=== PATIENT | female | born 1990 | race Caucasian/White ===

== ENCOUNTER 2020-01-22 11:10 | Emergency (ER) | payer MEDICAID, SELFPAY ==
[2020-01-22 11:11] VITALS: BP 131/89; PULSE 101; RESP 17; TEMP 36.4; O2SAT 100; BMI 21.6
--- NOTE | 2020-01-22 11:49 | ED.VIS.LOWEX ---
History of Present Illness Chief Complaint: Bite Narrative: . Patient states that around 2 days ago she fell in the [place], today she was showering and noted that she had a tick on her right shoulder with some slightly surrounding redness. She denies costal to general symptoms such as fever. She does state that it was engorged. She did attempt to remove it, but was unable to remove it completely. Patient denies any histories of allergies. She denies any underlying medical history. Review of systems otherwise negative. Past Medical History - Allergies and Home Meds Allergies/Adverse Reactions: Allergies Sulfa (Sulfonamide Antibiotics) Allergy (Verified 01/22/20 11:11) Swelling Primary Care Physician: Mirna Beckham MD [Primary Care Provider] - Prior records reviewed: Yes Past Medical History: None Lives: With Family Smoking Status: Current every day smoker Drugs: None Review of Systems All systems negative except as indicated General: Denies: Chills, Fever, Sweats Eyes: Denies: Visual changes - bilaterally, Diplopia ENT: Denies: Rhinorrhea, Sore throat Cardiovascular: Denies: Chest pain, Palpitations Respiratory: Denies: Dyspnea, Cough, Dyspnea on exertion Gastrointestinal: Denies: Abdominal pain, Nausea, Vomiting, Diarrhea, Melena, Hematochezia Genitourinary: Denies: Dysuria, Hematuria, Frequency Musculoskeletal: Denies: Back pain, Extremity Pain Skin: Reports: Rash Neurological: Denies: Headache, Weakness, Numbness Physical Exam Vital Signs/Narrative: Vital Signs Temp Pulse Resp BP Pulse Ox 01/22/20 11:11 97.5 F L 101 H 17 131/89 H 100 Inital Vital Signs reviewed: Yes General: Well nourished, Well developed Head: Normocephalic, Atraumatic ENT: No Trauma, Moist Mucous Membranes Neck: Nontender, Full ROM Cardiovascular: Regular rate, Regular rhythm, No murmurs Respiratory: No distress, CTA bilaterally, Chest nontender Skin: - - Examination of the patient's right anterior shoulder shows an implanted tick with some surrounding erythema, no obvious target lesion. Neurological: Alert, Oriented x3, Cranial nerves II-XII grossly intact, Normal Strength, Normal Sensation Diagnostic/Tx/Re-eval - Medical Decision Making Patient presented secondary to a tick bite. Tick was removed as noted in the procedure note. Patient be placed on doxycycline secondary to the surrounding rash. Procedures Procedure(s): Removal of tick in the patient's skin was performed. Area was cleansed with alcohol. Forceps were utilized, and the tick was removed except for a very punctate mouthparts that remained. Patient tolerated this well. ED Disposition - Plan for ED Patient: Disposition: Home or Assisted Living Diagnosis: Tick bite Instructions: ED Bite Tick Abx Tx Prescriptions: Fluconazole [Diflucan] 150 mg PO DAILY #1 tab Prescription Printed Doxycycline 100 mg PO BID #20 capsule Referrals: Mirna Beckham MD [Primary Care Provider] -
[2020-01-22 12:13] VITALS: BP 120/78; PULSE 103; RESP 15; O2SAT 99
== END 2020-01-22 12:14 | disposition home or self-care (01) ==
PROVIDERS: Emergency Provider Emergency Medicine
DX: S40.261A Insect bite (nonvenomous) of right shoulder, initial encounter (principal); W57.XXXA Bitten or stung by nonvenomous insect and other nonvenomous arthropods, initial encounter; Y93.9 Activity, unspecified; Y92.828 Other wilderness area as the place of occurrence of the external cause; Y99.9 Unspecified external cause status; F17.200 Nicotine dependence, unspecified, uncomplicated
CPT/HCPCS: 99282

== ENCOUNTER 2020-06-29 14:50 | Emergency (ER) | payer MEDICAID, SELFPAY ==
[2020-06-29 14:51] VITALS: BP 115/64; PULSE 81; RESP 16; TEMP 36.4; O2SAT 99; BMI 23.6
--- NOTE | 2020-06-29 15:15 | ED.DCSUM_ITS ---
History of Present Illness Chief Complaint: Cough Informant: Patient Onset: Days Context: Gradual Onset Current Severity: Mild Maximum Severity: Moderate Narrative: Patient presents secondary to dry cough and congestion. Patient is currently 21 weeks . She states she woke up 2 or 3 days ago with head congestion and some drainage from her left eye. She has had a dry cough. No fever or chills. She states she initially thought this is all secondary to allergies but has noted that the mucus that she is blowing from her nose has become thicker and more discolored. She denies any known Covid exposure. - Past Medical History (1) ADHD Status: Chronic Past Medical History - Allergies and Home Meds Allergies/Adverse Reactions: Allergies Sulfa (Sulfonamide Antibiotics) Allergy (Verified 06/29/20 14:51) Swelling Primary Care Physician: Care Physician,No Primary [Primary Care Provider] - Prior records reviewed: Yes Lives: With Family Smoking Status: Current some day smoker Review of Systems General: Denies: Chills, Fever Eyes: Reports: - - Left eye drainage. Denies: Visual changes - bilaterally ENT: Reports: Bilateral ear pain, Rhinorrhea, Sore throat Cardiovascular: Denies: Chest pain Respiratory: Reports: Cough. Denies: Dyspnea, Sputum Gastrointestinal: Denies: Abdominal pain, Nausea, Vomiting, Diarrhea Musculoskeletal: Denies: Swelling, Extremity Pain Neurological: Denies: Headache Hematologic: Denies: Easy bruising, Easy bleeding Allergy: Denies: Uticaria Physical Exam Vital Signs/Narrative: Vital Signs Temp Pulse Resp BP Pulse Ox 06/29/20 14:51 97.6 F L 81 16 115/64 99 Inital Vital Signs reviewed: Yes General: Well nourished, Well developed Head: Normocephalic Eyes: Perrl, EOMI, - - No conjunctival injection or drainage at this time ENT: Moist mucous membranes, TM's clear, - - Posterior pharynx examination unremarkable Cardiovascular: Regular rate, Regular rhythm Respiratory: No distress, CTA bilaterally Abdomen: Soft, Nontender, - - Gravid Extremities: Nontender Skin: Normal color Neurological: Alert, Oriented x3 Psychological: Normal affect Diagnostic/Tx/Re-eval - Medical Decision Making Patient will have a Covid test obtained. Test results will be texted to her. Patient be treated with a course of Zithromax, first dose given here. ED Disposition - Plan for ED Patient: Disposition: Home or Assisted Living Diagnosis: Sinusitis Instructions: ED Sinusitis (Antibiotic Treatment) Prescriptions: Azithromycin [Zithromax] 250 mg PO DAILY #4 tab Transmission Status: Pending to [facility] Referrals: Brie Richmond CNM [Certified Nurse Measuring Machine Tender] - 1-2 Weeks
[2020-06-29] MEDS: Azithromycin 250 MG Tablet 500 MG PO (15:31)
[2020-06-29 15:37] VITALS: BP 122/73; PULSE 79; RESP 16; O2SAT 99
== END 2020-06-29 15:38 | disposition home or self-care (01) ==
LOC: ED 15:27
PROVIDERS: Emergency Provider Emergency Medicine
DX: O99.512 Diseases of the respiratory system complicating pregnancy, second trimester (principal); J32.9 Chronic sinusitis, unspecified; O99.332 Smoking (tobacco) complicating pregnancy, second trimester; F17.200 Nicotine dependence, unspecified, uncomplicated; Z3A.21 21 weeks gestation of pregnancy
CPT/HCPCS: 87426; 99282

== ENCOUNTER 2020-09-17 11:58 | Emergency (ER) | payer MEDICAID, SELFPAY ==
[2020-09-17 11:59] VITALS: BP 112/70; PULSE 85; RESP 16; TEMP 36.6; O2SAT 97; BMI 26.6
--- NOTE | 2020-09-17 12:45 | RAD_ITS ---
STUDY: X-RAY CHEST REASON FOR EXAM: Female, 30 years old. Cough -- Shield abdomen TECHNIQUE: Single AP portable view of the chest. COMPARISON: None. FINDINGS: The lungs are clear and expanded. There is no demonstrated pleural abnormality. Normal size heart. Normal mediastinum and maria m. Normal visualized pulmonary arteries. Normal visualized aortic arch and descending thoracic aorta. Normal visualized thoracic spine. Normal visualized ribs, clavicles, and shoulders. There is no demonstrated abnormality of the visualized soft tissue structures of the upper abdomen. RAD/Chest 1 View (Portable) IMPRESSION: Normal x-ray examination of the chest. Electronically Signed: Patrice Velásquez MD at 12:55 EDT , Service support ,
--- NOTE | 2020-09-17 14:00 | EX.ED.VIS.UR ---
HPI HPI - URI History of Present Illness Chief Complaint: Cough Informant: patient Onset/Context/Timing Onset: Yesterday Context: Gradual Onset Timing: Continuous Quality: Aching Location: Throat Worsened by: Swallowing Associated Symptoms Associated Symptoms: Positive for Nasal Congestion, Headache, Sinus Pressure, Nausea, Diarrhea, Shortness of Breath and Productive Cough; Negative for Myalgias, Vomiting, Chest Pain, Nonproductive cough and Hemoptysis Narrative Narrative: Patient presents with cough and congestion that has been getting worse since yesterday. Patient states that she is coughing up some thick yellow and brown sputum. Patient admits to some nasal congestion, headache, sinus pressure, and nausea. Patient also admits to some diarrhea. Patient states her pain is worse with talking. Patient admits to some mild shortness of breath but denies any chest pain. ROS ROS ED Constitutional Constitutional ED: Reports chills and subjective; Denies fever(s) Eyes Eyes: Denies blurry vision or change in vision ENT ENT ED: Reports rhinorrhea and sore throat Cardiovascular Cardiovascular: Denies chest pain or palpitations Respiratory/Chest Respiratory/Chest: Reports cough and dyspnea Gastrointestinal Gastrointestinal: Reports diarrhea and nausea; Denies vomiting Genitourinary Genitourinary ED: Denies dysuria or hematuria Musculoskeletal Musculoskeletal: Denies back pain or neck pain Integumentary Denies abscess or rash Neurologic Neurologic: Reports headache(s); Denies weakness Allergic/Immunologic Allergic/Immunologic ED: Denies mouth swelling or urticaria PFSH PFSH Home Medications azithromycin 250 mg PO DAILY #4 tab 06/29/20 [Rx Last Taken Unknown] [id number] acid 1 each PO DAILY 06/29/20 [History Last Taken Unknown] Allergy/AdvReac Type Severity Reaction Status Date / Time Sulfa (Sulfonamide Allergy Swelling Verified 06/29/20 14:51 Antibiotics) Social History Smoking Status: Former smoker EXAM Physical Exam Const Vital Signs: 09/17/20 11:59 09/17/20 12:34 Temperature 97.9 F Temperature Source Oral Pulse Rate 85 Respiratory Rate 16 Respiratory Effort Normal Blood Pressure 112/70 Blood Pressure Mean 84 Pulse Ox 97 Oxygen Delivery Method Room Air Positive well nourished and well developed General Appearance ED: well developed HEENT Reports moist mucous membranes Throat: posterior oropharynx abnormal Positive for erythema; Negative for exudates Eyes PERRL and EOMs intact bilaterally Neck supple and no JVD Resp normal respiratory effort and clear to auscultation bilaterally Cardio regular rate, regular rhythm and no murmurs Rate: regular rate Rhythm: regular rhythm GI normal to inspection, nondistended, normoactive bowel sounds and non-tender Palpation: soft and mass Percussion: other Other Details: There is a gravid uterus Extremity normal to inspection General Extremety ED: Negative for edema or tenderness General Extremity: Negative for edema Neuro oriented x3, CN's II-XII intact bilaterally and no sensory deficits noted Sensorium / Orientation: alert Motor Exam: strength 5/5 throughout Psych mental status grossly normal Skin no rashes or lesions noted MDM MDM MDM Narrative Medical decision making narrative: Portable 1 view chest x-ray was obtained. On my interpretation, lung camacho are clear. There is normal cardiac silhouette. Bony thorax is normal. There is no acute process noted. Radiologist also interpreted the x-ray and agrees. Rapid strep was obtained and was negative. Rapid COVID-19 antigen was obtained and was negative. Patient was advised of her findings. Patient was instructed to drink plenty of fluids. Patient was instructed to follow-up with her primary care physician in 5 to 7 days. Patient understood and was agreeable with the plan. All questions were answered. Radiography Diagnostic Testing: Radiology Impression Chest X-Ray 09/17/20 12:45 IMPRESSION: Normal x-ray examination of the chest. Electronically Signed: Patrice Velásquez MD at 12:55 EDT , Service support , Discharge Plan Triage Chief Complaint: Cough ED Provider: Derick Rudolph Dx/Rx/DC Orders Clinical Impression: Viral upper respiratory infection Instructions: ED URI, Viral, No Abx (Adult) Prescriptions: No Action [id number] acid 1 EACH tablet 1 each PO DAILY RF: 0 azithromycin 250 MG tablet 250 mg PO DAILY Qty: 4 RF: 0 Primary Care Provider: Care Physician,No Primary Referrals: Care Physician,No Primary [Primary Care Provider] - 3-5 Days Disposition Disposition: Home, self care
== END 2020-09-17 14:27 | disposition home or self-care (01) ==
PROVIDERS: Emergency Provider Emergency Medicine
DX: J06.9 Acute upper respiratory infection, unspecified (principal); Z87.891 Personal history of nicotine dependence
CPT/HCPCS: 71045; 87426; 87880; 99282

== ENCOUNTER 2020-11-14 01:20 | Inpatient (IN) | payer MEDICAID, SELFPAY ==
[2020-11-14] VITALS (42 sets, daily range): BP systolic 78–141; BP diastolic 45–78; PULSE 71–200; RESP 16; TEMP 36.5–37.1; O2SAT 94–100; BMI 26.5
[2020-11-14] MEDS: Lactated Ringers 500 ML 999 ML IV ×2 (02:00→05:52)
[2020-11-14] MEDS: Lactated Ringers 1,000 ML 50 ML IV (02:00)
[2020-11-14 02:29] LABS: Absolute Lymphocyte Count 1.33 X10^3/uL (0.83-4.51); Absolute Neutrophil Count 7.4 X10^3/uL (2.0-7.7); Basophil# 0.05 X10^3/uL; Basophil% 0.5 % (0-1); Eosinophil# 0.08 X10^3/uL; Eosinophils% 0.8 % (0-5); Hemoglobin 11.5 g/dL (12.0-15.0); Lymphocyte # 1.33 X10^3/ul (0.83-4.51); Lymphocyte % 13.9 % (19-41); Mean Corp Hgb Conc 32.9 g/dL (32-36); Mean Corpuscular Hgb 30.9 pg (27.0-32.0); Mean Corpuscular Volume 94.1 fL (81-99); Mean Platelet Vol. 12.2 fl (6.2-12.0); Monocyte# 0.59 X10^3/uL; Monocyte% 6.2 % (0-10); NRBC Flagged by Analyzer 0 % (0-5); Neutrophil # 7.36 X10^3/uL (2.7-7.7); Neutrophil % 77.1 % (47-70); Platelet Count 237 K/mm3 (150-450); RBC Distribution Width CV 12.6 % (11.6-14.6); RBC Distribution Width SD 43.6 fl (35.1-43.9); Red Blood Count 3.72 M/mm3 (4.2-5.4); White Blood Count 9.6 K/mm3 (4.4-11.0)
[2020-11-14] MEDS: fentaNYL-bupivacaine (epidural) 100 ML BAG EPIDURAL ×2 (06:21→11:43)
[2020-11-14] MEDS: Oxytocin 30 units/NS 500 ml 30 UNITS/500 ML IV.SOLN IV (07:42)
--- NOTE | 2020-11-14 08:15 | HP.PCM.OB_ITS ---
HPI - General General Date of Admission: 11/14/20 HPI Narrative JONATHAN MURILLO, is a 30 F at 41.2 weeks gestation who presents with spontaneous rupture of membranes at 0020. Positive movement and feeling contractions every couple of minutes. Desires epidural anesthesia. Maternal Data Information ALEXA Calculator Estimated Delivery Date Method Current WG Current Estimate 11/05/20 Manual 41w 2d PFSH PFSH Medical History Elective Trauma Home Medications [id number] acid 1 each PO DAILY 06/29/20 [History Last Taken Unknown] Allergy/AdvReac Type Severity Reaction Status Date / Time Sulfa (Sulfonamide Allergy Swelling Verified 11/14/20 01:59 Antibiotics) Surgical History [place] teeth extracted Social History Smoking Status: Former smoker History Elective abortions Hx Para 1 Spontaneous abortions Hx # Term Pregnancies Ectopic pregnancies Hx # Pregnancies Multiple births # of living children NST FHR Rate Baby A Baseline: 150 Variability:: Moderate Accelerations:: 15 x 15 Decelerations:: None NST Reactive:: Yes FHR Category:: Category I Uterine Activity:: irregular ROS Eyes Eyes: Denies blurry vision, change in vision or spots in vision ENT HEENT: Denies dizziness or headache(s) Cardiovascular Cardiovascular: Denies abdominal pain, chest pain or dyspnea Respiratory/Chest Respiratory/Chest: Denies cough, dyspnea, shortness of breath at rest or shortness of breath with exertion Gastrointestinal Gastrointestinal: Denies abdominal pain, diarrhea or vomiting Genitourinary Genitourinary: Denies change in urinary stream, difficulty urinating or dysuria Musculoskeletal Musculoskeletal: Reports none Integumentary Integumentary: Denies rash Neurologic Neurologic: Denies dizziness, headache(s), memory loss or weakness Psychiatric Psychiatric: Reports none Vital Signs Vital Signs Vital Signs: 11/14/20 01:43 11/14/20 01:44 11/14/20 03:27 Temperature 98.8 F 97.7 F L Temperature Source Temporal Pulse Rate 100 103 H 78 Blood Pressure 114/66 132/69 H BP Systolic 114 132 BP Diastolic 66 69 Pulse Ox 98 98 11/14/20 04:37 11/14/20 04:38 11/14/20 05:48 Temperature 98.1 F Temperature Source Pulse Rate 71 85 Blood Pressure 116/68 117/70 BP Systolic 116 117 BP Diastolic 68 70 Pulse Ox 97 100 11/14/20 05:53 11/14/20 05:54 11/14/20 05:58 Temperature Temperature Source Pulse Rate 87 83 Blood Pressure 123/76 H 128/78 H BP Systolic 123 128 BP Diastolic 76 78 Pulse Ox 99 99 11/14/20 06:03 11/14/20 06:05 11/14/20 06:08 Temperature Temperature Source Pulse Rate 81 93 91 Blood Pressure 141/60 H BP Systolic 141 BP Diastolic 60 Pulse Ox 99 99 11/14/20 06:10 11/14/20 06:11 11/14/20 06:13 Temperature Temperature Source Pulse Rate 85 80 89 Blood Pressure 78/45 L 80/46 L 86/50 L BP Systolic 78 80 86 BP Diastolic 45 46 50 Pulse Ox 98 11/14/20 06:18 11/14/20 06:23 11/14/20 06:25 Temperature Temperature Source Pulse Rate 76 86 78 Blood Pressure 105/59 L 106/55 L BP Systolic 105 106 BP Diastolic 59 55 Pulse Ox 100 100 11/14/20 06:28 11/14/20 06:29 11/14/20 06:33 Temperature Temperature Source Pulse Rate 73 71 81 Blood Pressure 120/58 L BP Systolic 120 BP Diastolic 58 Pulse Ox 100 100 11/14/20 06:34 11/14/20 06:50 11/14/20 07:18 Temperature 98.1 F 98.1 F Temperature Source Pulse Rate 72 85 Blood Pressure 121/69 H 129/72 H BP Systolic 121 129 BP Diastolic 69 72 Pulse Ox 11/14/20 08:13 11/14/20 09:09 11/14/20 10:03 Temperature 97.8 F 98.1 F Temperature Source Oral Oral Pulse Rate 85 94 88 Blood Pressure 124/58 H 108/63 91/50 L BP Systolic 124 108 91 BP Diastolic 58 63 50 Pulse Ox 97 98 11/14/20 10:57 11/14/20 12:12 11/14/20 13:56 Temperature 98.0 F Temperature Source Oral Pulse Rate 87 72 116 H Blood Pressure 102/58 L 97/57 L 107/58 L BP Systolic 102 97 107 BP Diastolic 58 57 58 Pulse Ox 100 98 11/14/20 15:07 11/14/20 15:58 11/14/20 16:13 Temperature 98.2 F Temperature Source Temporal Pulse Rate 84 118 H 90 Blood Pressure 101/59 L 131/67 H 113/60 BP Systolic 101 131 113 BP Diastolic 59 67 60 Pulse Ox 94 11/14/20 16:27 11/14/20 16:42 11/14/20 16:44 Temperature 98.1 F Temperature Source Pulse Rate 85 79 Blood Pressure 115/60 112/64 BP Systolic 115 112 BP Diastolic 60 64 Pulse Ox 11/14/20 16:58 11/14/20 17:12 11/14/20 17:27 Temperature Temperature Source Pulse Rate 75 86 83 Blood Pressure 115/68 114/71 112/68 BP Systolic 115 114 112 BP Diastolic 68 71 68 Pulse Ox 11/14/20 17:42 Temperature Temperature Source Pulse Rate 79 Blood Pressure 107/68 BP Systolic 107 BP Diastolic 68 Pulse Ox Weight Weight: 154 lb 9.6 oz Body Mass Index (BMI) 26.5 Physical Exam Narrative CE- 4/70/-1 Amniotic fluid- thick meconium Const alert, oriented x3 and no apparent distress General Appearance: cooperative Orientation / Consciousness: awake Exam Limitations: no limitations HEENT normocephalic Head and Scalp: normal to inspection Eyes General Eye: normal appearance of both eyes Neck full ROM and no lymphadenopathy Lymph Lymphatic: no lymphadenopathy noted Chest inspection of chest normal Resp normal respiratory effort, normal air movement and clear to auscultation bilaterally Effort and Inspection: able to speak in complete sentences and symmetric chest movement Cardio regular rate and regular rhythm GI normal to inspection, nondistended, normoactive bowel sounds Back/Spine normal ROM Extremity full ROM and no calf tenderness Skin no rashes or lesions noted General Skin Exam: no breakdown Neuro oriented x3 and CN's II-XII intact bilaterally Psych mental status grossly normal and thought process normal Labs Labs Labs: Blood Type B NEGATIVE Antibody Screen TNP Hct 35.0 % (37-47) L Hgb 11.5 g/dL (12.0-15.0) L Rubella- immune HB - neg HC- neg RPR- NR HIV- NR GBS - negative Assessment & Plan (1) 41 weeks gestation of : (2) Spontaneous rupture of amniotic membranes: (3) Meconium in amniotic fluid: PLAN: Admit to labor and delivery Routine labs Start IV fluids and titrate per orders GBS negative SROM- thick meconium at 0020/ [employer] notified Epidural when indicated Start pitocin IV and titrate per policy Anticipate Dr. Russo notified and is collaborating physician
[2020-11-14] MEDS: Lactated Ringers 1,000 ML 200 ML IV ×2 (08:24→14:39)
--- NOTE | 2020-11-14 08:45 | PCM.PN.OB ---
Subjective Subjective Patient seen at bedside. Comfortable with epidural. Objective Data Objective Data Vital Signs: Vital Signs Temp Pulse BP Pulse Ox 98.1 F 85 124/58 H 100 11/14/20 07:18 11/14/20 08:13 11/14/20 08:13 11/14/20 06:33 Weight: 154 lb 9.6 oz Body Mass Index (BMI) 26.5 Intake & Output: Intake and Output for Last 24 Hours 11/12/20 11/13/20 11/14/20 23:59 23:59 23:59 Intake Total 1414.32 / 1414.32 Balance 1414.32 / 1414.32 Lab / Micro Data Result Diagrams: 11/14/20 02:00 Labs: Laboratory Results - last 24 hr 11/14/20 02:00: WBC 9.6, RBC 3.72 L, Hgb 11.5 L, Hct 35.0 L, MCV 94.1, MCH 30.9, MCHC 32.9, RDW Std Deviation 43.6, RDW Coeff of Shakir 12.6, Plt Count 237, MPV 12.2 H, Immature Gran % (Auto) 1.500 H, Neut % (Auto) 77.1 H, Lymph % (Auto) 13.9 L, [place] % (Auto) 6.2, Eos % (Auto) 0.8, Baso % (Auto) 0.5, Absolute Neuts (auto) 7.4, Absolute Lymphs (auto) 1.33, Nucleated RBC % 0 11/14/20 02:00: Blood Type B NEGATIVE, Antibody Screen TNP 11/14/20 02:00: Antibody Screen NEGATIVE Micro: Microbiology 11/14/20 02:00 Mucosa - Nose SARS-CoV-2 Antigen (Rapid) - Final
--- NOTE | 2020-11-14 12:20 | PCM.PN.BLA ---
Progress Note Patient seen at bedside. Feeling increased pressure with contractions. Denies any pain. Physical Exam Narrative CE- 7/80/-1 Const alert and no apparent distress General Appearance: cooperative and comfortable Exam Limitations: no limitations HEENT normocephalic Eyes General Eye: normal appearance of both eyes Neck full ROM General: normal visual inspection Chest Chest: symmetrical chest wall rise Resp normal respiratory effort and normal air movement Effort and Inspection: symmetric chest movement Auscultation: clear to auscultation bilaterally Cardio regular rate and regular rhythm GI normal to inspection, nondistended, normoactive bowel sounds Back/Spine normal ROM Extremity full ROM and no calf tenderness General Extremity: normal exam except as noted Skin no rashes or lesions noted Neuro CN's II-XII intact bilaterally Psych mental status grossly normal Assessment & Plan Assessment/Plan (1) Meconium in amniotic fluid: (2) Spontaneous rupture of amniotic membranes: (3) 41 weeks gestation of : PLAN: Continue present management
[2020-11-14] MEDS: Oxytocin 30 units/NS 500 ml 30 UNITS/500 ML IV.SOLN 334 UNITS IV (15:50)
--- NOTE | 2020-11-14 15:57 | EX.PCM.OBRPT ---
Maternal Data Information Final ALEXA: 11/05/20 Final ALEXA Source: [place] <20 weeks Gestational age: 41.2 Vaginal Delivery Maternal Presentation Maternal Presentation: Spontaneous Rupture of Membranes Type of Induction: Pitocin Operative Information Date of Procedure: 11/14/20 Pre-Operative Diagnosis: post term , SROM, labor , meconium fluid Post-Operative Diagnosis: same, live female infant Surgery / Procedure Performed: Spontaneous Vaginal Delivery Type of Anesthesia: Epidural Drain: Conner to straight drain Estimated Blood Loss: 150 Time of Delivery: 15:48 Findings Description of Procedure: I was notified that the patient was still pushing arrest of descent and suspected asynclitic head. Upon my arrival felt that the fetus was in transverse position at this time fetus was rotated to the TOI position and at this time descent occurred. With good maternal pushing efforts infant's head was delivered without complication. Tight nuchal was noted. This nuchal was clamped and cut and with good maternal pushing efforts the anterior shoulder was delivered with gentle downward traction followed by the rest the infant's body. At this time the was placed on the mother's chest and it was vigorous at time of delivery. Respiratory and peds were present for delivery due to meconium fluid. At this time then Pitocin was initiated and placenta was delivered intact spontaneously. Perineum and vagina were intact. Presentation: Vertex Amniotic Membrane Rupture Type: Spontaneous Amniotic Fluid Description: Thick meconium Placental Delivery Description: Spontaneous Placenta Disposition: [facility] Specimen(s) Removed: Placenta Cord Vessel Description: 3 Vessels Cord Entanglement: Around neck x 1, tight Nuchal Cord Compression: With compression Infant A Gender: Female (1 minute): 8 (5 minute): 9 Delayed Cord Clamping: Yes Post Vaginal Delivery Medications Given After Delivery: IV Pitocin Episiotomy Description: None Laceration: None Complication Complications: None Admit VTE Documentation VTE Present on Admission: No VTE Mechan Device Prophylaxis: None VTE Pharm Prophylaxis Ordered: No Reason Prophylaxis Not Ordered: Procedure Not Indicated
[2020-11-15 00:03] VITALS: BP 123/79; PULSE 78; RESP 16
[2020-11-15 04:44] VITALS: BP 111/67; PULSE 81; RESP 18
--- NOTE | 2020-11-15 08:22 | PCM.PN.OB ---
Subjective Subjective She is doing well this morning having some cramping. Otherwise doing well. Ambulating voiding without difficulty. Lochia normal. Desires to stay another night. Objective Data Objective Data Vital Signs: Vital Signs Temp Pulse Resp BP Pulse Ox 98.4 F 81 18 111/67 94 11/14/20 20:27 11/15/20 04:44 11/15/20 04:44 11/15/20 04:44 11/14/20 15:58 Oxygen Delivery Method Room Air Weight: 154 lb 9.6 oz Body Mass Index (BMI) 26.5 Intake & Output: Intake and Output for Last 24 Hours 11/13/20 11/14/20 11/15/20 23:59 23:59 23:59 Intake Total 3200.63 / 3200.63 Output Total 2900 / 2900 Balance 300.63 / 300.63 Lab / Micro Data Result Diagrams: 11/14/20 02:00 Labs: Laboratory Results - last 24 hr 11/14/20 18:45: Screen NEGATIVE, Baby's Blood Type O POSITIVE, Baby's BARRY NEGATIVE Micro: Microbiology 11/14/20 02:00 Mucosa - Nose SARS-CoV-2 Antigen (Rapid) - Final Physical Exam Const alert and no apparent distress General Appearance: comfortable HEENT normocephalic Resp normal respiratory effort Extremity normal to inspection Assessment & Plan (1) (spontaneous vaginal delivery): PLAN: Pt doing well. Routine care. Anticipate discharge tomorrow.
[2020-11-15 09:27] VITALS: BP 115/60; PULSE 89; RESP 16; TEMP 36.7
[2020-11-15 13:00] VITALS: BP 102/72; PULSE 68; RESP 18; TEMP 36.7
--- NOTE | 2020-11-15 14:15 | CASEMGMT ---
Social Work Consult received for history of homelessness. Upon chart reviewed noted homelessness during , noted in [facility] record in June 2020. Mother of baby with history of ADHD. Presented to MOB's room to find room darkened. MOB waved this internal communications writer in and made comment to baby every time. Father of baby laying down on couch. Educated MOB to this internal communications writer and to role. Acknowledged that MOB seems to be sleeping and asked if this was a good time to talk. MOB expressed preference for social work visit at a later time. Agreed for a social services aide to come back later. Spoke with social services aide who is working Wednesday for handoff. Plan: SW to see family on , as per the MOB's request for a later SW consult. -BRYNN Chew, INFECTIOUS DISEASE PHYSICIAN
[2020-11-15 20:55] VITALS: BP 115/73; PULSE 61; RESP 16; TEMP 36.8
--- NOTE | 2020-11-15 22:00 | NURSING ---
report received from karan GILES. this RN to assume care of pt at this time.
[2020-11-16 02:57] VITALS: BP 92/52; PULSE 57; RESP 16; TEMP 36.2
--- NOTE | 2020-11-16 08:41 | PCM.PN.OB ---
Subjective Subjective Pt doing well. No CP, SOB, leg pain. Ambulating and voiding without difficulty. Aaron reg diet. No N/V. Lochia normal. Objective Data Objective Data Vital Signs: Vital Signs Temp Pulse Resp BP Pulse Ox 97.2 F L 57 L 16 92/52 L 94 11/16/20 02:57 11/16/20 02:57 11/16/20 02:57 11/16/20 02:57 11/14/20 15:58 Oxygen Delivery Method Room Air Weight: 154 lb 9.6 oz Body Mass Index (BMI) 26.5 Intake & Output: Intake and Output for Last 24 Hours 11/14/20 11/15/20 11/16/20 23:59 23:59 23:59 Intake Total 3200.63 / 3200.63 Output Total 2900 / 2900 Balance 300.63 / 300.63 Lab / Micro Data Result Diagrams: 11/14/20 02:00 Micro: Microbiology 11/14/20 02:00 Mucosa - Nose SARS-CoV-2 Antigen (Rapid) - Final Physical Exam Const alert General Appearance: comfortable HEENT normocephalic Resp normal respiratory effort Extremity normal to inspection Assessment & Plan (1) (spontaneous vaginal delivery): PLAN: PPD#2 s/p . Doing well and meeting all milestones to go home. Discharge home today.
[2020-11-16 08:48] VITALS: BP 129/77; PULSE 62; RESP 16; TEMP 36.2
[2020-11-16 12:55] VITALS: BP 125/80; PULSE 61; RESP 16; TEMP 36.4
--- NOTE | 2020-11-16 17:30 | CASEMGMT ---
Addendum entered by Elizabeth Mc 11/16/20 17:47: apgars 8/9 Elizabeth Mc BALANCING MACHINE SET UP WORKERFrancesca GOMEZ Original Note: JOSSELIN Note Referral Source: [facility] Referral Reason: History of homelessness, negative drug screen, new fob Mom: Renate Aguero Delivered at 41+2 weeks vaginally PNC: [facility] Control: Condoms Baby: Amy GOMES 11/14/20 Weight 7#2 ounces Box Brander: Dr. Hardni or other MD at [facility] ([facility]?) MOB's other children: Luis Miguel age 5. While patient is in the hospital FOB's sister and family is watching and caring for Luis Miguel Housing: Patient, and Luis Miguel reside in an apartment. FOB reports he lives separately. Transportation: Patient reports she is able to drive and has access to a vehicle. Supplies: Patient reports she has carseat, crib, bassinet, clothes and diapers for the . She reports she has all the supplies. Supports: Patient's friend, Stefanie and FOB's sister who both reside in town. Patient said that patient's Godparents Kaci and Marisa are also supportive and available for support. 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 Patient worked there for 6 months but does not plan to return back to work at [employer] due to the schedule would interfere with her time with her 5 year old son. Agency Involvement: Patient repots she has [employer], Food stamps and receives counseling and support from care center. SW offered to make referral to [facility] and patient was accepting of referral to [facility]. SW made on line [facility] referral. Mother said that the best time to call her is before 9am in the morning and her contact number is [phone]. FOB: Ayan Dong Jr age 28 Time Together: FOB and patient knew each other in preschool but have been in a relationship for 1 1/2 years FOB will be involved with the FOB is employed at [employer] as a helper shear operator. He plans to take 2 weeks off work to help and provide support to mom and . FOB has no other children. FOB reports no history of MH/AOD or Domestic Violence Patient's MH history: Patient denied history of anxiety or depression. Patient said that her parents were addicts and her mother was bipolar. Patient that she is aware that if she is going down that road she reaches out to people. Patient said that her sister has been and invaluableand will be here at the end of the month. Patient reports no previous Post Depression. Patient was educated on Shaken Baby, Post Depression and Safe Sleeping. Patient reports no AOD use. Negative tox screen in April. SW met with patient privately. She was the . She was very engaging with the and interacted appropriately. The FOB arrived with the carseat and social welfare administrator asked patient if this copy writer could interview her in his presence and she agreed. Patient reports friends, family and agency support such as Care Center. SW made referral to [facility]. SW provided patient with handout on depression including [facility], Depression and Anxiety and there support phone number, Back to sleep, [facility] , Information on Depression and Post Depression, Online resources for post mood and anxiety disorders, 10 facts about depression and anxiety, Counseling agencies in [facility], and symptoms of and post depression. Plan: Home with [facility] referral Elizabeth GOMEZ
== END 2020-11-16 13:55 | disposition home or self-care (01) | DRG 560 ==
PROVIDERS: Advanced Practice Midwife; Admitting Provider Obstetrics & Gynecology; Visit Provider Obstetrics & Gynecology
DX: O42.02 Full-term premature rupture of membranes, onset of labor within 24 hours of rupture (principal); O48.0 Post-term pregnancy; O69.1XX0 Labor and delivery complicated by cord around neck, with compression, not applicable or unspecified; O62.1 Secondary uterine inertia; O77.0 Labor and delivery complicated by meconium in amniotic fluid; O32.2XX0 Maternal care for transverse and oblique lie, not applicable or unspecified; Z3A.41 41 weeks gestation of pregnancy; Z37.0 Single live birth; Z87.891 Personal history of nicotine dependence
CPT/HCPCS: 59025; 59050; 85025; 85461; 86850; 86900; 86901; 87426; 90384; 99218; J7120; G0378; J2790

== ENCOUNTER 2021-04-05 14:46 | Emergency (ER) | payer MEDICAID, SELFPAY ==
[2021-04-05 14:47] VITALS: BP 120/70; PULSE 87; RESP 16; TEMP 36.7; O2SAT 100; BMI 22.4
--- NOTE | 2021-04-05 15:08 | EX.ED.DYSGE1 ---
HPI History of Present Illness Chief Complaint: Shortness of Breath Informant: patient Narrative Narrative: Patient presents with occasional cough but no dyspnea. She has myalgias, fevers. She has had some nasal congestion. She has known exposure to Covid with a close contact. She has not been immunized. She is a smoker. She is drinking water and eating blueberries. However, food makes her nauseated and she has vomited a couple times. No blood. No diarrhea. She is concerned that she may have Covid. Of note, she is also breast-feeding. [facility] Medical History ADHD (attention deficit hyperactivity disorder) Anxiety Elective (spontaneous vaginal delivery) Trauma Home Medications [id number] acid 1 each PO DAILY 06/29/20 [History Last Taken Unknown] ondansetron 4 mg PO Q8H PRN #10 tab 04/05/21 [Rx Last Taken Unknown] Allergy/AdvReac Type Severity Reaction Status Date / Time Sulfa (Sulfonamide Allergy Swelling Verified 11/14/20 01:59 Antibiotics) Surgical History [place] teeth extracted Social History Smoking Status: Current some day smoker tobacco type: cigarettes ROS ROS ED Constitutional Constitutional ED: Reports chills, fever(s) and subjective; Denies sweats Eyes Eyes: Denies blurry vision or change in vision ENT ENT ED: Reports rhinorrhea; Denies sore throat Cardiovascular Cardiovascular: Denies chest pain Respiratory/Chest Respiratory/Chest: Reports cough; Denies dyspnea, dyspnea on exertion or sputum Gastrointestinal Gastrointestinal: Reports diarrhea, nausea, vomiting and other Details: She has intermittent nausea very. Has vomited a couple times. She has had some soft stools but no watery diarrhea. ; Denies abdominal pain Genitourinary Genitourinary ED: Denies dysuria, hematuria or urinary frequency Musculoskeletal Musculoskeletal: Reports myalgias Integumentary Denies rash Neurologic Neurologic: Reports headache(s); Denies paresthesias or weakness Psychiatric Psychiatric: Denies anxiety or depression Endocrine Endocrinology: Denies polydipsia or polyuria Allergic/Immunologic Allergic/Immunologic ED: Denies mouth swelling or urticaria EXAM Physical Exam Const Vital Signs: 04/05/21 14:47 04/05/21 15:00 Temperature 98.1 F Temperature Source Oral Pulse Rate 87 Respiratory Rate 16 Respiratory Effort Normal Respiratory Depth Normal Respiratory Pattern Normal Blood Pressure 120/70 Blood Pressure Mean 86 Pulse Ox 100 Oxygen Delivery Method Room Air Room Air Positive well developed General Appearance ED: well developed and NAD; Negative for cyanotic or diaphoretic HEENT Reports moist mucous membranes; Denies dry mucous membranes HEENT Narrative: Mucous membranes still moist. Negative for trauma or tenderness Mouth ED: No dry mucous membranes Mouth: No dry mucous membranes Eyes General Eye ED: Negative for pale conjunctiva or scleral icterus Neck no JVD Chest Wall inspection of chest normal Resp normal respiratory effort and clear to auscultation bilaterally Resp Narrative: Breath sounds are clear. No pain with a deep breath. Effort and Inspection: Negative for pain with movement Auscultation: Negative for rales, rhonchi or wheezes Cardio regular rate, regular rhythm and no murmurs GI normal to inspection, nondistended, normoactive bowel sounds, non-tender and non-distended Palpation: soft Back/Spine no CVA tenderness General Back: Negative for CVA tenderness Extremity normal to inspection General Extremety ED: Negative for edema or tenderness General Extremity: Negative for edema Neuro Sensorium / Orientation: alert; Negative for orientation impaired Motor Exam: Negative for general weakness Psych mental status grossly normal Skin no rashes or lesions noted MDM MDM MDM Narrative Medical decision making narrative: And talk with patient about her symptoms. She has no known exposure to Covid. She has less than 24 hours of symptoms. She has no dysuria frequency urgency. No abdominal pain. No sputum production. Are clear. Her oxygen level is normal. We will send off a Covid PCR. We will not have her wait for this. I will treat her with Zofran. She did not want anything other than Motrin or Tylenol for aches or pains. We discussed expected course and reasons to return. Discharge Plan Triage Chief Complaint: Shortness of Breath ED Provider: Nelson Llanes Dx/Rx/DC Orders Clinical Impression: Close exposure to 2019-nCoV, Fever, Myalgia, Nausea & vomiting Instructions: Coronavirus Disease 2019 (COVID-19): Caring for Yourself or Others, ED Vomiting (Adult) Prescriptions: New ondansetron 4 mg tablet,disintegrating 4 mg PO Q8H PRN (Reason: nausea and vomiting) Qty: 10 RF: 0 No Action [id number] acid 1 EACH tablet 1 each PO DAILY RF: 0 Primary Care Provider: Care Physician,No Primary Referrals: Markos,Heather, DO [NON-STAFF] - 1 Week if not improving Care Physician,No Primary [Primary Care Provider] - Disposition Disposition: Home, Self Care
[2021-04-05] MEDS: Ondansetron 4 MG/2 ML Vial IV (15:27)
[2021-04-05] MEDS: Ibuprofen 200 MG Tablet 400 MG PO (15:27)
[2021-04-05 16:24] VITALS: BP 107/63; PULSE 81; RESP 16; O2SAT 97
== END 2021-04-05 16:25 | disposition home or self-care (01) ==
PROVIDERS: Emergency Provider Emergency Medicine
DX: R50.9 Fever, unspecified (principal); M79.10 Myalgia, unspecified site; R11.2 Nausea with vomiting, unspecified; Z20.822 Contact with and (suspected) exposure to COVID-19; R06.02 Shortness of breath; R09.81 Nasal congestion; F17.210 Nicotine dependence, cigarettes, uncomplicated; R05.9 Cough, unspecified
CPT/HCPCS: 87635; 96361; 96374; 99284; J7040; J2405; U0003; U0005

== ENCOUNTER 2021-10-10 20:48 | Emergency (ER) | payer MEDICAID, SELFPAY ==
[2021-10-10 20:49] VITALS: BP 183/169; PULSE 90; RESP 15; TEMP 36.1; O2SAT 95; BMI 20.7
--- NOTE | 2021-10-10 21:34 | ED.VIS.LOWEX ---
HPI History of Present Illness Chief Complaint: Lower Extremity Injury Narrative Narrative: Patient denies significant past medical history presents with injury to the fifth digit on her right foot. She states that she hit it against a door frame and hooked it, bending it laterally. This was approximately 1 to 2 hours ago. She went to take ibuprofen but realized she did not have any at home. She presents because of the pain, swelling, and injury to her right fifth digit on her foot. She denies other injury. Pain is worse with walking and weightbearing. PFSH PFS Medical History ADHD (attention deficit hyperactivity disorder) Anxiety Elective (spontaneous vaginal delivery) Trauma Home Medications vit 122-ferrous fumarate 27 mg iron-folic acid 800 mcg tablet 1 each PO DAILY Check with primary doctor 06/29/20 [History Last Taken Unknown] ondansetron 4 mg disintegrating tablet 4 mg PO Q8H PRN nausea and vomiting #10 tabs 04/05/21 [Rx Last Taken Unknown] Allergy/AdvReac Type Severity Reaction Status Date / Time Sulfa (Sulfonamide Allergy Swelling Verified 10/10/21 20:51 Antibiotics) Surgical History [place] teeth extracted Social History Smoking Status: Current some day smoker tobacco type: cigarettes ROS ROS ED ROS Narrative Constitutional: No fever, no chills. HEENT: No sore throat. No neck pain. No loss of vision. No rhinorrhea. Cardiovascular: No chest pain. No palpitations. No pedal edema. Respiratory: No cough, no shortness of breath. Abdominal: No abdominal pain. No nausea. No vomiting. Genitourinary: No dysuria. No hematuria. Musculoskeletal: No myalgias. Right fifth digit on right foot injury Neurologic: No headaches. No dizziness. No lightheadedness. Skin: No rash. No change in color. Psychiatric: No depression. No anxiety. EXAM Physical Exam Narrative Exam Narrative: Afebrile. Vital signs noted. HEENT: Normocephalic. Atraumatic. PERRL, EOMI. Neck soft and supple. No point tenderness or step off. Cardiovascular: Regular rate and rhythm. No murmurs, rubs, or gallops appreciated. Respiratory: No tachypnea. Lungs clear to auscultation bilaterally. Gastrointestinal: Abdomen soft, nontender, with normoactive bowel sounds. No rebound or guarding. Neurological: Awake. Alert. Nonfocal, nonlateralizing. Skin: No rash. Normal color. No pallor. Musculoskeletal: No pedal edema. Full range of motion extremities. Positive ecchymosis and swelling at base of fifth digit on right foot. Neurovascular intact distally with good capillary refill. Range of motion limited secondary to pain. Const Vital Signs: 10/10/21 20:49 Temperature 97.0 F L Temperature Source Temporal Pulse Rate 90 Respiratory Rate 15 Blood Pressure 183/169 H Blood Pressure Mean 173 Pulse Ox 95 Oxygen Delivery Method Room Air MDM MDM MDM Narrative Medical decision making narrative: X-rays were obtained of the right foot and 3 views. She was administered ibuprofen and ice pack. X-ray interpreted by ED physician shows fifth proximal phalanx fracture with soft tissue swelling. It does not appear to be intra-articular. Her toes will be dat taped and she will be given a postoperative shoe and be weightbearing as tolerated. She will take yopi-iem-wvrvlyl analgesics. I feel she be discharged safely home with follow-up. Return instructions were reviewed. Disposition is discharged home in stable condition. Radiography Diagnostic Testing: Clinical Impression(s) from Imaging Studies Foot X-Ray 10/10/21 21:55 IMPRESSION: Periarticular fifth proximal phalanx fracture and surrounding soft tissue swelling. The fracture line does not appear to extend directly into the articular surface and the joint space is well-maintained. Electronically Signed: Celeste Negrete MD at 22:16 EDT , ADDENDUM: 10/10/212228 IMPRESSION: Periarticular fifth proximal phalanx fracture and surrounding soft tissue swelling. The fracture line does not appear to extend directly into the articular surface and the joint space is well-maintained. N.B. : MD Misty, confirmed on 10/10/2021 22:23:00 (ET) that the healthcare facility has received the radiology report. Electronically Signed: Celeste Negrete MD at 22:16 EDT , Discharge Plan Triage Chief Complaint: Lower Extremity Injury ED Provider: Isaiah Jay Dx/Rx/DC Orders Clinical Impression: Fracture of toe of right foot, Pain of fifth toe Instructions: ED Fracture, Toe, Closed Prescriptions: No Action [id number] acid 1 EACH tablet 1 each PO DAILY ondansetron 4 mg tablet,disintegrating 4 mg PO Q8H PRN (Reason: nausea and vomiting) Qty: 10 0RF Referrals: Cristofer Duong DO [STAFF PHYSICIAN] - 1-2 Weeks Activity Restrictions/Additional Instructions: Ice and elevate and take [id number] analgesics as needed. Follow-up with your primary care physician in 1 to 2 weeks. Disposition Disposition: Home, Self Care
--- NOTE | 2021-10-10 21:55 | RAD_ITS ---
ACR Level 3 findings have been noted. An addendum which confirms receipt of the report will follow. EXAM: XR RIGHT FOOT COMPLETE, 3 OR MORE VIEWS CLINICAL INDICATION: Trauma TECHNIQUE: Frontal, lateral and oblique views of the right foot. This report was created using [employer] report generation technology. COMPARISON: None. FINDINGS: BONES/JOINTS: There is fracture of the proximal portion of the fifth proximal phalanx, with oblique fracture line extending to the periarticular dorsal and lateral bone immediately adjacent to the proximal articular surface on lateral and frontal views. Preservation of the joint space. No sclerotic or destructive changes observed. SOFT TISSUES: Moderate soft tissue swelling around the fifth MTP joint. No radiopaque foreign body. RAD/Foot min 3 Views IMPRESSION: Periarticular fifth proximal phalanx fracture and surrounding soft tissue swelling. The fracture line does not appear to extend directly into the articular surface and the joint space is well-maintained. Electronically Signed: Celeste Negrete MD at 22:16 EDT ,
[2021-10-10] MEDS: Ibuprofen 600 MG Tablet PO (22:01)
== END 2021-10-10 22:46 | disposition home or self-care (01) ==
LOC: ED 22:37
PROVIDERS: Emergency Provider Emergency Medicine; PCP Student in an Organized Health Care Education/Training Program; Visit Provider Emergency Medicine
DX: S92.511A Displaced fracture of proximal phalanx of right lesser toe(s), initial encounter for closed fracture (principal); W22.09XA Striking against other stationary object, initial encounter; F17.210 Nicotine dependence, cigarettes, uncomplicated
CPT/HCPCS: 73630; 99283

== ENCOUNTER 2021-12-09 13:08 | Emergency (ER) | payer MEDICAID, SELFPAY ==
[2021-12-09 13:09] VITALS: BP 159/133; PULSE 68; RESP 16; TEMP 35.8; O2SAT 98; BMI 20.7
--- NOTE | 2021-12-09 13:32 | EDS_ITS ---
HPI History of Present Illness Chief Complaint: Head Injury Detail of Chief Complaint: Closed head injury Informant: patient Onset/Context/Timing Onset: Hours Mechanism/Context: Blunt Injury and Fall Location of pain/injuries: - (Right-sided head pain/scalp pain) Quality of Pain: Dull and Aching Location: Right parietal Current Severity: Mild Maximum Severity: Moderate Worsened by: Nothing Relieved by: Nothing Associated Symptoms Associated Symptoms: Positive for Loss of consciousness (Possibly 1 second); Negative for Parasthesias, Weakness, Loss of function, Inability to ambulate or Amnesia Narrative Narrative: Patient is a 31-year-old woman who fell out of the top bunk striking her rail as she fell from the top bunk. She hit the right side of her head. She may have been dazed. She denies double vision, blurred vision loss of vision. She denies ringing or ears decreased hearing. Denies neck pain. Denies paresthesia, anesthesia medics. She states she has problems with her balance. She does report nausea without vomiting. She is not on an anticoagulant. She is not on an antiplatelet medicine. She has no prior history of head trauma. She denies dental trauma. She denies difficulty opening or closing her mouth. Tetanus Immunization: 5-10 years Prior similar symptoms: No Recent Illness/Hospitalization: No PFSH PFSH Medical History ADHD (attention deficit hyperactivity disorder) Anxiety Elective (spontaneous vaginal delivery) Trauma Allergy/AdvReac Type Severity Reaction Status Date / Time Sulfa (Sulfonamide Allergy Swelling Verified 12/09/21 13:12 Antibiotics) Surgical History [place] teeth extracted Social History (Updated 12/09/21 @ 13:[address] Simeon Muro MD) household members: children Smoking Status: Current some day smoker tobacco type: cigarettes substance use type: does not use ROS ROS ED Constitutional Constitutional ED: Denies chills, fever(s) or subjective Eyes Eyes: Reports blurry vision; Denies change in vision ENT ENT ED: Denies ear pain, rhinorrhea or sore throat Cardiovascular Cardiovascular: Denies chest pain or palpitations Respiratory/Chest Respiratory/Chest: Denies cough, dyspnea or dyspnea on exertion Gastrointestinal Gastrointestinal: Reports nausea; Denies diarrhea or vomiting Genitourinary Genitourinary ED: Denies dysuria, hematuria or urinary frequency Musculoskeletal Musculoskeletal: Denies arthralgias, back pain, myalgias or neck pain Integumentary Denies abscess or Abrasions Neurologic Neurologic: Reports headache(s); Denies paresthesias or weakness Psychiatric Psychiatric: Reports anxiety Endocrine Endocrinology: Denies cold intolerance or heat intolerance Hematologic/Lymphatic Hematologic/Lymphatic: Denies easy bleeding or easy bruising EXAM Physical Exam Const Vital Signs: 12/09/21 13:09 12/09/21 13:30 Temperature 96.5 F L Temperature Source Temporal Pulse Rate 68 Respiratory Rate 16 Respiratory Effort Normal Respiratory Pattern Normal Blood Pressure 159/133 H Blood Pressure Mean 141 Pulse Ox 98 Oxygen Delivery Method Room Air Positive well nourished and well developed General Appearance ED: well developed and NAD HEENT HEENT Narrative: Head is atraumatic normocephalic. No clinical findings of basilar skull fracture. No TMJ tenderness. No evidence of malocclusion. No evidence of dental trauma. Uvula midline. No deviation tongue or protrusion. Nose: Negative for septum abnormal Eyes PERRL and EOMs intact bilaterally General Eye ED: Yes other Other Details: There is no subconjunctival hemorrhage noted. There is no nystagmus. There is no APD. Neck full ROM Neck Narrative: C-spine was cleared per Nexus criteria. General: Negative for tenderness Chest Wall inspection of chest normal and palpation of chest normal Resp normal respiratory effort and clear to auscultation bilaterally Cardio regular rhythm, S1 normal heart sound, S2 normal heart sound and no murmurs Rate: regular rate GI GI Narrative: There is no pain to patient of the pelvis. Back/Spine normal to inspection and no thoracic nor lumbar tenderness General Back: Negative for CVA tenderness Extremity normal to inspection and full ROM Neuro oriented x3, CN's II-XII intact bilaterally, moves all extremities, no focal motor deficits and no sensory deficits noted Neuro Narrative: Gait was observed. There is no ataxia. Able to walk on heels and toes. Tandem gait is normal. Romberg with eyes open and closes normal. [place] Coma Scale: document GCS findings Spontaneous Obeys Commands Oriented 15 Sensorium / Orientation: alert Deep Tendon Reflexes: Rt Triceps (C7): 1+, Lt Triceps (C7): 1+, Rt Biceps (C5, C6): 1+, Lt Biceps (C5, C6): 1+, Rt Brachioradialis (C6): 1+, Lt Brachioradialis (C6): 1+, Rt Patellar (L4): 1+, Lt Patellar (L4): 1+, Rt Ankle (S1): 1+ and Lt Ankle (S1): 1+ Deep Tendon Reflexes Back: Rt Patellar (L4): 1+, Lt Patellar (L4): 1+, Rt Ankle (S1): 1+ and Lt Ankle (S1): 1+ Plantar Reflex: Downgoing: bilateral Psych mental status grossly normal and thought process normal Skin no rashes or lesions noted, no wounds, skin turgor normal and no jaundice MDM MDM MDM Narrative Medical decision making narrative: Patient has a concussion. The [place] CT head rule and [place] rule imaging is not indicated. The patient was made aware based on these 2 large studies images not indicated she is fine with that. She was told she does have a concussion. Discharge Plan Triage Chief Complaint: Head Injury ED Provider: Simeon Muro Dx/Rx/DC Orders Clinical Impression: Concussion with brief LOC Instructions: ED Concussion Prescriptions: No Action [id number] acid 1 EACH tablet 1 each PO DAILY ondansetron 4 mg tablet,disintegrating 4 mg PO Q8H PRN (Reason: nausea and vomiting) Qty: 10 0RF Primary Care Provider: Naina Delong Referrals: Naina Delong MD [Primary Care Provider] - As Needed Activity Restrictions/Additional Instructions: Activity that causes your symptoms to be worse. You should not do anything strenuous until you are symptom-free for several days Disposition Disposition: Home, Self Care
== END 2021-12-09 13:58 | disposition home or self-care (01) ==
LOC: ED 13:43
PROVIDERS: Emergency Provider Emergency Medicine; PCP Student in an Organized Health Care Education/Training Program; Visit Provider Emergency Medicine
DX: S06.0X1A Concussion with loss of consciousness of 30 minutes or less, initial encounter (principal); F17.210 Nicotine dependence, cigarettes, uncomplicated; W06.XXXA Fall from bed, initial encounter; F41.9 Anxiety disorder, unspecified; F90.9 Attention-deficit hyperactivity disorder, unspecified type
CPT/HCPCS: 99282

== ENCOUNTER 2022-02-20 22:09 | Emergency (ER) | payer MEDICAID, SELFPAY ==
[2022-02-20 22:11] VITALS: BP 105/78; PULSE 115; RESP 16; TEMP 36.4; O2SAT 99; BMI 19.8
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
== END 2022-02-20 23:44 | disposition home or self-care (01) ==
PROVIDERS: Emergency Provider Emergency Medicine; PCP Student in an Organized Health Care Education/Training Program; Visit Provider Emergency Medicine
DX: S16.1XXA Strain of muscle, fascia and tendon at neck level, initial encounter (principal); S61.214A Laceration without foreign body of right ring finger without damage to nail, initial encounter; F17.210 Nicotine dependence, cigarettes, uncomplicated; R51.9 Headache, unspecified; V48.5XXA Car driver injured in noncollision transport accident in traffic accident, initial encounter
CPT/HCPCS: 70450; 72125; 73130; 73564; 99282

== ENCOUNTER 2022-04-29 18:49 | Emergency (ER) | payer MEDICAID, SELFPAY ==
[2022-04-29 18:50] VITALS: BP 96/68; PULSE 78; RESP 18; TEMP 36.1; O2SAT 99; BMI 19.6
[2022-04-29 19:40] LABS: Bacteria 0 SEEN /hpf (None Seen); Color, Urine Yellow (Yellow); Glucose, Dipstick Normal (Normal); Ketone-Dipstick 15 mg/dl (Negative); Leukocyte Esterase-Dipstick Negative /ul (Negative); Mucous, Urine 0 SEEN /hpf (<or=2+); Nitrite-Dipstick NEGATIVE (Negative); Occult Blood-Urine Negative /ul (Negative); Protein-Dipstick 15 mg/dl (Negative); Red Blood Cells-Urine 0 SEEN /hpf (0-5); Specific Gravity, Urine 1.005 (1.002-1.030); Squamous Epithelial Cells - UA 0-5 SEEN /hpf (5-10); Urine Bilirubin Dipstick Negative (Negative); Urine Clarity Clear (Clear); Urine Urobilinogen Normal (Normal); White Blood Cells 0 SEEN /hpf (0-5)
[2022-04-29 19:46] LABS: Absolute Lymphocyte Count 1.61 X10^3/uL (0.83-4.51); Absolute Neutrophil Count 10.1 X10^3/uL (2.0-7.7); Basophil# 0.07 X10^3/uL; Basophil% 0.6 % (0-1); Eosinophil# 0.09 X10^3/uL; Eosinophils% 0.7 % (0-5); Hematocrit 45.6 % (37-47); Hemoglobin 15.2 g/dL (12.0-15.0); Lymphocyte # 1.61 X10^3/ul (0.83-4.51); Mean Corp Hgb Conc 33.3 g/dL (32-36); Mean Corpuscular Hgb 30.6 pg (27.0-32.0); Mean Corpuscular Volume 91.9 fL (81-99); Mean Platelet Vol. 9.5 fl (6.2-12.0); Monocyte# 0.44 X10^3/uL; Monocyte% 3.6 % (0-10); NRBC Flagged by Analyzer 0 % (0-5); Neutrophil # 10.08 X10^3/uL (2.7-7.7); Neutrophil % 81.7 % (47-70); Platelet Count 319 K/mm3 (150-450); RBC Distribution Width CV 12.6 % (11.6-14.6); RBC Distribution Width SD 42.5 fl (35.1-43.9); Red Blood Count 4.96 M/mm3 (4.2-5.4); White Blood Count 12.3 K/mm3 (4.4-11.0)
[2022-04-29 19:58] LABS: Internal QC Validated? YES +Cl - CLEAR BKGD; Pregnancy, Serum, hCG Quali. NEGATIVE Negative
[2022-04-29 20:03] LABS: Anion Gap 5 (5-15); BUN 10 mg/dL (7-18); BUN/Creat Ratio 13.2 RATIO (10-20); Calcium,Total 9.2 mg/dL (8.5-10.1); Chloride 110 mmol/L (98-107); Creatinine, Serum 0.76 mg/dL (0.55-1.02); EST Glomerular Filtration Rate 94 mL/min (>60); Est Glom Filt Rate - Afr Amer 113 mL/min (>60); Estimated Creatinine Clearance 88.96 ml/min; Glucose 112 mg/dL (74-106); Potassium 3.9 mmol/L (3.5-5.1); Sodium Level 140 mmol/L (136-145)
--- NOTE | 2022-04-29 21:10 | EX.ED.DYSGE1 ---
HPI History of Present Illness Chief Complaint: Nausea/Vomiting Informant: patient Narrative Narrative: 32-year-old female presenting with nausea, diarrhea, not feeling well for the past 2 days. She states she did have a headache but that has since improved. She has had dry heaving but no current vomiting. She was concerned that she may be . Denies urinary complaints. She states overall she is now starting to feel improved in the emergency department. She has been under a lot of stress, Denies suicidal or homicidal ideation. Prior similar symptoms: Yes Recent Illness/Hospitalization: No PFSH PFSH Medical History ADHD (attention deficit hyperactivity disorder) Anxiety Elective (spontaneous vaginal delivery) Trauma Allergy/AdvReac Type Severity Reaction Status Date / Time Sulfa (Sulfonamide Allergy Swelling Verified 04/29/22 18:50 Antibiotics) Surgical History [place] teeth extracted Social History household members: children Smoking Status: Current some day smoker tobacco type: cigarettes substance use type: does not use ROS ROS ED Constitutional Constitutional ED: Denies fever(s) Eyes Eyes: Denies change in vision ENT ENT ED: Denies rhinorrhea or sore throat Cardiovascular Cardiovascular: Denies chest pain or palpitations Respiratory/Chest Respiratory/Chest: Denies cough or dyspnea Gastrointestinal Gastrointestinal: Reports diarrhea and nausea; Denies abdominal pain or vomiting Genitourinary Genitourinary ED: Denies dysuria Musculoskeletal Musculoskeletal: Denies myalgias Integumentary Denies rash Neurologic Neurologic: Denies headache(s) Psychiatric Psychiatric: Denies suicidal thoughts EXAM Physical Exam Const Vital Signs: 04/29/22 18:50 Temperature 97 F L Temperature Source Temporal Pulse Rate 78 Respiratory Rate 18 Blood Pressure 96/68 Blood Pressure Mean 77 Pulse Ox 99 Oxygen Delivery Method Room Air Positive well nourished and well developed General Appearance ED: well developed HEENT Reports normocephalic, head/scalp atraumatic and moist mucous membranes Eyes PERRL and EOMs intact bilaterally Neck supple Neck Narrative: No meningismus General: Negative for tenderness Chest Wall inspection of chest normal Resp normal respiratory effort and clear to auscultation bilaterally Cardio regular rate and regular rhythm GI non-tender and non-distended Palpation: soft; Negative for guarding or rebound tenderness present no CVA tenderness Extremity normal to inspection Neuro oriented x3 Sensorium / Orientation: alert Psych mental status grossly normal Skin no rashes or lesions noted MDM MDM MDM Narrative Medical decision making narrative: 32-year-old female with complaint of nausea. Differential diagnosis includes viral syndrome, gastroenteritis, . CBC shows white count 12.3. Chemistries are unremarkable. Urinalysis is normal. is negative. Patient's abdomen is completely soft and nontender with no rebound or guarding. She states her symptoms have greatly improved in the emergency department. She denies nausea or headache currently. She is requesting to have her IV removed. COVID, influenza negative. Patient eloped from the emergency department without notifying staff prior to completion of her evaluation. Lab Data Attestation: I reviewed the patient's lab results. Labs: Laboratory Results - last 24 hr 04/29/22 04/29/22 04/29/22 19:20 19:35 19:35 WBC 12.3 H RBC 4.96 Hgb 15.2 H Hct 45.6 MCV 91.9 MCH 30.6 MCHC 33.3 RDW Std Deviation 42.5 RDW Coeff of Shakir 12.6 Plt Count 319 MPV 9.5 Immature Gran % (Auto) 0.400 Neut % (Auto) 81.7 H Lymph % (Auto) 13.0 L Sawyer % (Auto) 3.6 Eos % (Auto) 0.7 Baso % (Auto) 0.6 Absolute Neuts (auto) 10.1 H Absolute Lymphs (auto) 1.61 Nucleated RBC % 0 Sodium 140 Potassium 3.9 Chloride 110 H Carbon Dioxide 25.0 Anion Gap 5 BUN 10 Creatinine 0.76 Estim Creat Clear Calc 88.96 Est GFR (MDRD) Af Amer 113 Est GFR (MDRD) Non-Af 94 BUN/Creatinine Ratio 13.2 Glucose 112 H Calcium 9.2 Serum , Qual Urine Color Yellow Urine Clarity Clear Urine pH 7.0 Ur Specific [place] 1.005 Urine Protein 15 H Urine Glucose (UA) Normal Urine Ketones 15 Urine Occult Blood Negative Urine Nitrite NEGATIVE Urine Bilirubin Negative Urine Urobilinogen Normal Ur Leukocyte Esterase Negative Urine RBC 0 SEEN Urine WBC 0 SEEN Ur Squamous Epith Cells 0-5 SEEN Urine Bacteria 0 SEEN Urine Mucus 0 SEEN 04/29/22 19:35 WBC RBC Hgb Hct MCV MCH MCHC RDW Std Deviation RDW Coeff of Shakir Plt Count MPV Immature Gran % (Auto) Neut % (Auto) Lymph % (Auto) Sawyer % (Auto) Eos % (Auto) Baso % (Auto) Absolute Neuts (auto) Absolute Lymphs (auto) Nucleated RBC % Sodium Potassium Chloride Carbon Dioxide Anion Gap BUN Creatinine Estim Creat Clear Calc Est GFR (MDRD) Af Amer Est GFR (MDRD) Non-Af BUN/Creatinine Ratio Glucose Calcium Serum , Qual NEGATIVE Urine Color Urine Clarity Urine pH Ur Specific [place] Urine Protein Urine Glucose (UA) Urine Ketones Urine Occult Blood Urine Nitrite Urine Bilirubin Urine Urobilinogen Ur Leukocyte Esterase Urine RBC Urine WBC Ur Squamous Epith Cells Urine Bacteria Urine Mucus Discharge Plan Triage Chief Complaint: Nausea/Vomiting Other Complaint: Headache ED Provider: Jackie oNrton Dx/Rx/DC Orders Clinical Impression: Nausea & vomiting Instructions: ED Vomiting (Adult) Primary Care Provider: [facility] Patt Lobato Referrals: [facility] Patt Lobato [Primary Care Provider] - Disposition Disposition: Elopement Discharge Date/Time: 04/29/22 22:20
--- NOTE | 2022-04-29 22:17 | ED.RN ---
PATIENT CAME OUT TO THE NURSING STATION AND STATED SHE COULDN'T STAY ANY LONGER THAT SHE WAS GOING TO LEAVE. PATIENT GIVEN INFORMATION ABOUT E CHART
== END 2022-04-29 22:20 | disposition left against medical advice (07) ==
PROVIDERS: Emergency Provider Emergency Medicine; Visit Provider Emergency Medicine
DX: R11.2 Nausea with vomiting, unspecified (principal); R19.7 Diarrhea, unspecified; F17.210 Nicotine dependence, cigarettes, uncomplicated
CPT/HCPCS: 80048; 81001; 84703; 85025; 87428; 99283

== ENCOUNTER 2022-06-25 11:44 | Emergency (ER) | payer MEDICAID, SELFPAY ==
[2022-06-25 11:45] VITALS: BP 115/98; PULSE 80; RESP 16; TEMP 36.8; O2SAT 97; BMI 20.5
--- NOTE | 2022-06-25 12:55 | EX.ED.DYSGE1 ---
HPI <THOMAS Becerril - Last Filed: 06/25/22 13:01> History of Present Illness Chief Complaint: Ear Problem Narrative Narrative: Patient is a 32-year-old female with history of ADHD, anxiety who presents to the emerged part with 1 week of intermittent right ear pain. Patient states today she was playing with her daughter when she was moving her ear and had more pain. She states that hearing is muffled in that ear. She thought that there was might have been something in her ear and she used Q-tips. Patient denies any drainage from the ear, denies any recent submerging in water. Denies any fever or chills. Denies any pain to her head or headache. PFSH <THOMAS Becerril - Last Filed: 06/25/22 13:01> PFSH Medical History ADHD (attention deficit hyperactivity disorder) Anxiety Elective (spontaneous vaginal delivery) Trauma Home Medications amoxicillin 500 mg capsule 500 mg PO BID #20 caps 06/25/22 [Rx Last Taken Unknown] lisdexamfetamine 20 mg capsule (Vyvanse) 20 mg PO DAILY 06/25/22 [History Last Taken Unknown] Allergy/AdvReac Type Severity Reaction Status Date / Time Sulfa (Sulfonamide Allergy Swelling Verified 06/25/22 11:47 Antibiotics) Surgical History [place] teeth extracted Social History household members: children Smoking Status: Current some day smoker tobacco type: cigarettes substance use type: does not use ROS <THOMAS Becerril - Last Filed: 06/25/22 13:01> ROS ED ROS Narrative Constitutional: Negative for fever, chills, weight loss, weakness Eyes: Negative for vision loss, vision change, double vision ENT: Negative for any sore throat, congestion. Positive right ear pain Cardiovascular: Negative for any chest pain, tightness, palpitations Respiratory: Negative for any cough, sputum production, hemoptysis, dyspnea, dyspnea on exertion, orthopnea Gastrointestinal: Negative for any abdominal pain, nausea, vomiting, diarrhea, constipation, blood in stool, blood in vomit : Negative for any urinary frequency, dysuria, retention, blood in urine Muscle skeletal: Negative for any muscle joint pain, stiffness, myalgias, arthralgias, neck pain, back pain Neurological: Negative for any headache, syncope, numbness or tingling, dizziness Skin: Negative for any rashes, lumps, itching, abrasions, lacerations Psychiatric: Negative for any depression, anxiety, stress, suicidal ideation, homicidal ideation Hematologic: Negative for any easy bruising, excessive bruising, easy bleeding Allergies: Negative for any eczema, hives, rash EXAM <THOMAS Becerril - Last Filed: 06/25/22 13:01> Physical Exam Narrative Exam Narrative: Vital signs reviewed. HEET: Head normocephalic atraumatic, left TM is clear, no redness. Patient's right TM shows some erythema, bulging of the TM. This is consistent with acute otitis media. There is no rupture of the tympanic membrane.. Posterior pharynx is clear, moist mucous membranes. Nares clear bilaterally. Negative for any pain to her mastoid area. Neck: Supple with no lymphadenopathy or tenderness. No signs of meningismus, negative jolt sign. Cardiac: Regular rate and rhythm no murmurs gallops or rubs, equal peripheral pulses bilaterally. Respiratory: Lungs clear to auscultation bilaterally. No chest tenderness. Abdomen: Soft, nontender, nondistended. No abdominal bruit or pulsatile masses. No hepatosplenomegaly Extremities: No peripheral edema, no signs of gross trauma or deformity. Active full range of motion of all extremities. Neuro: Cranial nerves II through XII intact, no focal neurological deficits. Skin: Clean dry and intact with no rash, purpura, petechiae, vesicles or pustules. Backs/flank: No CVA tenderness, no midline spinal tenderness, no deformity. Psych: Normal mood and affect. No SI, HI or acute psychosis. Const Vital Signs: 06/25/22 11:45 Temperature 98.2 F Temperature Source Temporal Pulse Rate 80 Respiratory Rate 16 Blood Pressure 115/98 H Blood Pressure Mean 103 Pulse Ox 97 Oxygen Delivery Method Room Air <Dr. Ajay Montalvo DO - Last Filed: 06/25/22 18:36> Physical Exam Const Vital Signs: 06/25/22 11:45 Temperature 98.2 F Temperature Source Temporal Pulse Rate 80 Respiratory Rate 16 Blood Pressure 115/98 H Blood Pressure Mean 103 Pulse Ox 97 Oxygen Delivery Method Room Air [facility] <THOMAS Becerril - Last Filed: 06/25/22 13:01> [facility] Additional Tests and Interventions Diagnositc testing considered but not performed: CT of the brain, this would be consistent for a mastoiditis however there is little to no evidence to suspect this infection secondary no pain. Treatment and Re-Evaluation :: Patient appears generally well, patient appears nontoxic, vital signs are stable. Patient presents to the emergency department with 1 week of right ear pain. Patient's physical examination is consistent with a simple otitis media. Patient has no pain to the mastoid area, no evidence of suspect any mastoiditis. Patient has no tympanic membrane rupture, patient be given her first dose of amoxicillin here. She will be placed on amoxicillin twice a day for 10 days. She will follow-up closely with her PCP. Patient had all questions answered, given return precaution. Patient stable for discharge. <Dr. Ajay Montalvo DO - Last Filed: 06/25/22 18:36> [facility] Narrative Medical decision making narrative: This patient was seen with a PA/ELECTRICAL CONTRACTOR Individually assessed they patient including history and physical. I have reviewed everything on the chart that is available and agree with the documentation provided by the PA/ELECTRICAL CONTRACTOR including discussion about the assessment, treatment plan, discussion, and return precautions. 32-year-old female with history of right ear pain for about a week that has increased. Obvious otitis media on exam. Patient started on amoxicillin. Return precautions discussed. Discharge Plan Triage Chief Complaint: Ear Problem ED Midlevel Provider: Chava Dhaliwal ED Provider: Ajay Montalvo Dx/Rx/DC Orders Clinical Impression: Acute otitis media Instructions: ED Otitis Media Antibiotic ... Prescriptions: New amoxicillin 500 mg capsule 500 mg PO BID Qty: 20 0RF No Action Vyvanse 20 mg capsule 20 mg PO DAILY Label Comments: TAKE 1 CAPSULE BY MOUTH EVERY MORNING Primary Care Provider: [facility] Patt Lobato Referrals: [facility] Patt Lobato [Primary Care Provider] - Activity Restrictions/Additional Instructions: Take antibiotics until finished. You may use ibuprofen, Tylenol for pain. Disposition Disposition: Home, Self Care Discharge Date/Time: 06/25/22 13:10
[2022-06-25] MEDS: AMOXICILLIN 500 MG CAPSULE PO (13:00)
== END 2022-06-25 13:10 | disposition home or self-care (01) ==
PROVIDERS: Emergency Provider Student in an Organized Health Care Education/Training Program; Visit Provider Student in an Organized Health Care Education/Training Program
DX: H66.91 Otitis media, unspecified, right ear (principal); F17.210 Nicotine dependence, cigarettes, uncomplicated
CPT/HCPCS: 99283

== ENCOUNTER 2022-11-09 12:15 | Emergency (ER) | payer MEDICAID, SELFPAY ==
[2022-11-09 12:16] VITALS: BP 117/77; PULSE 86; RESP 18; TEMP 36.6; O2SAT 99; BMI 21.8
[2022-11-09] MEDS: DiphenhydrAMINE 25 MG Capsule PO (12:38)
[2022-11-09] MEDS: predniSONE 20 MG Tablet 40 MG PO (12:38)
--- NOTE | 2022-11-09 12:38 | EX.ED.DYSGE1 ---
HPI History of Present Illness Chief Complaint: Rash Informant: patient Narrative Narrative: Rash bilateral forearms progressive started 2 days ago. Today woke up with swelling on the face right eye. Pruritic symptoms no lip or tongue swelling. Exposed to poison keshia. No history of similar. Prior similar symptoms: No PFSH PFSH Medical History ADHD (attention deficit hyperactivity disorder) Anxiety Elective (spontaneous vaginal delivery) Trauma Home Medications amoxicillin 500 mg capsule 500 mg PO BID #20 caps 06/25/22 [Rx Last Taken Unknown] lisdexamfetamine 20 mg capsule (Vyvanse) 20 mg PO DAILY 06/25/22 [History Last Taken Unknown] hydrocortisone 2.5 % topical cream 1 applic topical BID #28 grams 11/09/22 [Rx Last Taken Unknown] prednisone 20 mg tablet 20 mg PO .asdir #19 tabs 11/09/22 [Rx Last Taken Unknown] Allergy/AdvReac Type Severity Reaction Status Date / Time Sulfa (Sulfonamide Allergy Swelling Verified 11/09/22 12:17 Antibiotics) Surgical History [place] teeth extracted Social History household members: children Smoking Status: Current some day smoker tobacco type: cigarettes substance use type: does not use ROS ROS ED Constitutional Constitutional ED: Denies chills, fever(s) or sweats Eyes Eyes: Denies change in vision ENT ENT ED: Denies dysphagia or sore throat Cardiovascular Cardiovascular: Denies chest pain, leg edema, palpitations or racing heartbeat Respiratory/Chest Respiratory/Chest: Denies cough, dyspnea or dyspnea on exertion Gastrointestinal Gastrointestinal: Denies abdominal pain, diarrhea, nausea or vomiting Genitourinary Genitourinary ED: Denies dysuria, hematuria or urinary frequency Musculoskeletal Musculoskeletal: Denies back pain, extremity pain or neck pain Integumentary Reports rash; Denies wounds Neurologic Neurologic: Denies headache(s), paresthesias or weakness EXAM Physical Exam Const Vital Signs: 11/09/22 12:16 Temperature 97.8 F Temperature Source Temporal Pulse Rate 86 Respiratory Rate 18 Blood Pressure 117/77 Blood Pressure Mean 90 Pulse Ox 99 Oxygen Delivery Method Room Air Positive well nourished and well developed General Appearance ED: well developed and NAD HEENT Reports moist mucous membranes HEENT Narrative: Slight facial swelling maxillary and periorbital around the right eye there is no erythema no tenderness no drainage. No eye involvement. No lip or tongue swelling. Airway tent normocephalic and atraumatic Eyes PERRL, EOMs intact bilaterally and conjunctivae normal General Eye ED: Yes normal appearance of both eyes Neck no lymphadenopathy and supple General: Negative for tenderness Chest Wall Chest: Negative for tenderness Resp normal respiratory effort and normal air movement Effort and Inspection: symmetric chest movement; Negative for respiratory distress Cardio regular rate, regular rhythm and no murmurs Peripheral Pulses: pulses 2+ throughout GI normal to inspection, nondistended, normoactive bowel sounds and non-tender Palpation: Negative for guarding or rebound tenderness present Back/Spine no CVA tenderness and no thoracic nor lumbar tenderness Extremity normal to inspection General Extremety ED: Negative for edema or tenderness General Extremity: Negative for edema Neuro oriented x3 and no sensory deficits noted Sensorium / Orientation: awake and alert Skin Skin Narrative: Bilateral forearms with excoriations raised papules scattered to the proximal forearm right greater than left. No vesicles no drainage. MDM MDM MDM Narrative Medical decision making narrative: Interventions / MDM: Differential diagnosis: Contact dermatitis, allergic facial swelling Diagnosis considered but do not suspect: Cellulitis however clinically allergic reaction My EKG interpretation: N/A Imaging independently reviewed and interpreted by myself: N/A External documents reviewed: N/A Test considered but not ordered:N/A ED course: Vital stable nontoxic. Exposure to poison keshia with contact dermatitis. Started on prednisone tapering for 2 weeks. Hydrocortisone cream also prescribed. Benadryl to use as needed. Discussed additional adjunct therapies. Outpatient follow-up given as requested. Re-evaluation: stable Disposition discussed with patient/family/significant other: Patient Case discussed with consulting clinician: N/A This note was generated with [employer] dictation software. It may contain incorrect words, spelling, and punctuation that were not noted in checking the note before signing. Discharge Plan Triage Chief Complaint: Rash ED Provider: Blake Santana Dx/Rx/DC Orders Clinical Impression: Facial swelling, Contact dermatitis Instructions: ED Contact Dermatitis Prescriptions: New prednisone 20 mg tablet 20 mg PO .asdir Qty: 19 0RF Rx Instructions: 2 tabs daily for the next 6 days next dose tomorrow then 1 tab daily for 7 days. hydrocortisone 2.5 % cream 1 applic topical BID Qty: 28 0RF No Action amoxicillin 500 mg capsule 500 mg PO BID Qty: 20 0RF Vyvanse 20 mg capsule 20 mg PO DAILY Patient Comments: TAKE 1 CAPSULE BY MOUTH EVERY MORNING Primary Care Provider: [facility],Patt Garcia Referrals: Adin Colorado MD [Med Staff - Business Information Manager] - 1-[address] [facility],Patt Garcia [Primary Care Provider] - Activity Restrictions/Additional Instructions: Continue steroids as prescribed. lathe set up person Benadryl 1 tab every 6 hours as needed. May use calamine lotion. Disposition Disposition: Home, Self Care Discharge Date/Time: 11/09/22 13:01
== END 2022-11-09 13:01 | disposition home or self-care (01) ==
LOC: ED 12:51
PROVIDERS: Emergency Provider Emergency Medicine; Visit Provider Emergency Medicine
DX: L23.7 Allergic contact dermatitis due to plants, except food (principal); F17.210 Nicotine dependence, cigarettes, uncomplicated
CPT/HCPCS: 99283

== ENCOUNTER 2023-01-29 21:36 | Emergency (ER) | payer MEDICAID, SELFPAY ==
[2023-01-29 21:37] VITALS: BP 104/91; PULSE 80; RESP 16; TEMP 36.6; O2SAT 99; BMI 20.9
--- NOTE | 2023-01-29 21:59 | EDS_ITS ---
HPI HPI - GI History of Present Illness Chief Complaint: Nausea/Vomiting Informant: patient Narrative Narrative: Illness started today less than 12 hours ago, patient started getting nauseated, fevers and chills that she measured up to 100.0, then she started having diffuse abdominal cramping and sharp pains, radiating into both sides of her low back, followed by occasional nonbilious nonbloody emesis. No diarrhea or bowel movement since this started. Lives at the [facility], so she is around a lot of people but none that she knows of that are definitely ill with this but she states she could be around sick contacts. No recent alcohol or drug use. No history of any abdominal surgeries. [facility] Medical History ADHD (attention deficit hyperactivity disorder) Anxiety Elective (spontaneous vaginal delivery) Trauma Home Medications amoxicillin 500 mg capsule 500 mg PO BID #20 caps 06/25/22 [Rx Last Taken Unknown] lisdexamfetamine 20 mg capsule (Vyvanse) 20 mg PO DAILY 06/25/22 [History Last Taken Unknown] hydrocortisone 2.5 % topical cream 1 applic topical BID #28 grams 11/09/22 [Rx Last Taken Unknown] prednisone 20 mg tablet 20 mg PO .asdir #19 tabs 11/09/22 [Rx Last Taken Unknown] ondansetron 4 mg disintegrating tablet 8 mg (2 x 4 mg) PO Q8H PRN PRN Nausea #20 tabs 01/29/23 [Rx Last Taken Unknown] Allergy/AdvReac Type Severity Reaction Status Date / Time Sulfa (Sulfonamide Allergy Swelling Verified 01/29/23 21:36 Antibiotics) Surgical History [place] teeth extracted Social History household members: children Smoking Status: Current some day smoker tobacco type: cigarettes substance use type: does not use ROS ROS ED Constitutional Constitutional ED: Reports chills and fever(s) Eyes Eyes: Denies change in vision or diplopia ENT ENT ED: Denies rhinorrhea or sore throat Cardiovascular Cardiovascular: Denies chest pain or palpitations Respiratory/Chest Respiratory/Chest: Denies cough or dyspnea Gastrointestinal Gastrointestinal: Reports abdominal pain, nausea and vomiting; Denies diarrhea Genitourinary Genitourinary ED: Reports other Details: Decreased urine output due to decreased oral intake today ; Denies dysuria or hematuria Musculoskeletal Musculoskeletal: Reports back pain; Denies neck pain Integumentary Denies abscess or rash Neurologic Neurologic: Denies headache(s), paresthesias or weakness Psychiatric Psychiatric: Denies anxiety or suicidal thoughts EXAM Physical Exam Const Vital Signs: 01/29/23 21:37 Temperature 97.8 F Temperature Source Temporal Pulse Rate 80 Respiratory Rate 16 Blood Pressure 104/91 H Blood Pressure Mean 95 Pulse Ox 99 Positive well nourished and well developed Constitutional Narrative: Very well-appearing in no distress, smiling and making faces at her children upon initial entry General Appearance ED: well developed and NAD HEENT Reports moist mucous membranes normocephalic and atraumatic Eyes PERRL and EOMs intact bilaterally Neck full ROM and supple Resp normal respiratory effort and clear to auscultation bilaterally Cardio regular rate, regular rhythm and no murmurs Rate: Negative for tachycardic GI non-tender and non-distended GI Narrative: Benign abdominal exam. Subjectively a little more uncomfortable suprapubic according to patient. Auscultation: normoactive bowel sounds Palpation: soft Back/Spine no CVA tenderness General Back: other FROM Extremity normal to inspection General Extremety ED: Negative for edema, pulses abnormal or tenderness General Extremity: Negative for edema or pulses abnormal Neuro oriented x3, CN's II-XII intact bilaterally and no sensory deficits noted Sensorium / Orientation: awake and alert Motor Exam: strength 5/5 throughout Skin no rashes or lesions noted and no wounds MDM MDM MDM Narrative Medical decision making narrative: Labs obtained, and are essentially all normal with a negative test. Patient is doing much better after IV fluids, Zofran, and dicyclomine. Patient thinks she has a stomach flu. I tend to agree this is probably viral gastritis. We discussed reasons to return, she is comfortable being discharged with prescription for Zofran and other measures of supportive care. Lab Data Attestation: I reviewed the patient's lab results. Labs: Laboratory Results - last 24 hr 01/29/23 22:10 WBC 6.2 RBC 4.30 Hgb 12.7 Hct 38.8 MCV 90.2 MCH 29.5 MCHC 32.7 RDW Std Deviation 45.2 H RDW Coeff of Shakir 13.6 Plt Count 235 MPV 9.4 Immature Gran % (Auto) 0.300 Neut % (Auto) 84.2 H Lymph % (Auto) 4.8 L Mason % (Auto) 9.2 Eos % (Auto) 1.0 Baso % (Auto) 0.5 Absolute Neuts (auto) 5.2 Absolute Lymphs (auto) 0.30 L Nucleated RBC % 0 Differential Comment SCANNED Sodium 139 Potassium 3.7 Chloride 106 Carbon Dioxide 27.0 Anion Gap 6 BUN 8 Creatinine 0.69 Estim Creat Clear Calc 104.35 Est GFR (MDRD) Af Amer 125 Est GFR (MDRD) Non-Af 103 BUN/Creatinine Ratio 11.5 Glucose 106 Calcium 8.3 L Total Bilirubin 0.50 AST 13 L ALT 21 Alkaline Phosphatase 44 L Total Protein 6.6 Albumin 3.7 Globulin 2.9 Albumin/Globulin Ratio 1.3 Serum , Qual NEGATIVE Discharge Plan Triage Chief Complaint: Nausea/Vomiting ED Provider: Miguel A Calderon Dx/Rx/DC Orders Clinical Impression: Viral gastritis Instructions: ED Vomiting (Adult) Prescriptions: New ondansetron [ondansetron] 4 mg tablet,disintegrating 8 mg PO Q8H PRN PRN (Reason: Nausea) Qty: 20 0RF No Action amoxicillin 500 mg capsule 500 mg PO BID Qty: 20 0RF Vyvanse 20 mg capsule 20 mg PO DAILY Patient Comments: TAKE 1 CAPSULE BY MOUTH EVERY MORNING prednisone 20 mg tablet 20 mg PO .asdir Qty: 19 0RF Rx Instructions: 2 tabs daily for the next 6 days next dose tomorrow then 1 tab daily for 7 days. hydrocortisone 2.5 % cream 1 applic topical BID Qty: 28 0RF Primary Care Provider[facility] Lobato [facility] - 3-5 Days if not improving (Or ER) Disposition Disposition: Home, Self Care
[2023-01-29] MEDS: Ondansetron 4 MG/2 ML Vial IV (22:09)
[2023-01-29] MEDS: Dicyclomine 10 MG Capsule 20 MG PO (22:10)
[2023-01-29] MEDS: 0.9% Normal Saline (1000mL) 1,000 ML 1000 ML IV (22:11)
[2023-01-29 22:19] LABS: Absolute Neutrophil Count 5.2 X10^3/uL (2.0-7.7); Basophil# 0.03 X10^3/uL; Basophil% 0.5 % (0-1); Eosinophil# 0.06 X10^3/uL; Hematocrit 38.8 % (37-47); Hemoglobin 12.7 g/dL (12.0-15.0); Lymphocyte % 4.8 % (19-41); Mean Corp Hgb Conc 32.7 g/dL (32-36); Mean Corpuscular Hgb 29.5 pg (27.0-32.0); Mean Corpuscular Volume 90.2 fL (81-99); Mean Platelet Vol. 9.4 fl (6.2-12.0); Monocyte# 0.57 X10^3/uL; Monocyte% 9.2 % (0-10); NRBC Flagged by Analyzer 0 % (0-5); Neutrophil # 5.21 X10^3/uL (2.7-7.7); Neutrophil % 84.2 % (47-70); POSITIVE DIFFERENTIAL YES; Platelet Count 235 K/mm3 (150-450); RBC Distribution Width CV 13.6 % (11.6-14.6); RBC Distribution Width SD 45.2 fl (35.1-43.9); White Blood Count 6.2 K/mm3 (4.4-11.0)
[2023-01-29 22:35] LABS: ALB/GLOB Ratio 1.3 RATIO (0.9-2.4); AST(SGOT) 13 U/L (15-37); Alanine Aminotransfer ALT/SGPT 21 U/L (13-56); Albumin, Serum 3.7 g/dL (3.2-5.0); Alkaline Phosphatase 44 U/L (45-117); Anion Gap 6 (5-15); BUN 8 mg/dL (7-18); BUN/Creat Ratio 11.5 RATIO (10-20); Calcium,Total 8.3 mg/dL (8.5-10.1); Chloride 106 mmol/L (98-107); Creatinine, Serum 0.69 mg/dL (0.55-1.02); EST Glomerular Filtration Rate 103 mL/min (>60); Est Glom Filt Rate - Afr Amer 125 mL/min (>60); Estimated Creatinine Clearance 104.35 ml/min; Globulin 2.9 g/dL (2.2-4.2); Glucose 106 mg/dL (74-106); Potassium 3.7 mmol/L (3.5-5.1); Protein, Total 6.6 g/dL (6.4-8.2); Sodium Level 139 mmol/L (136-145)
[2023-01-29 22:51] LABS: Internal QC Validated? YES +Cl - CLEAR BKGD; Pregnancy, Serum, hCG Quali. NEGATIVE Negative
[2023-01-29 23:14] LABS: Differential Indicated SCAN CRITERIA MET
[2023-01-29 23:20] LABS: Differential Comment SCANNED
[2023-01-29 23:39] VITALS: BP 120/89; PULSE 73; RESP 18; O2SAT 98
== END 2023-01-29 23:40 | disposition home or self-care (01) ==
PROVIDERS: Emergency Provider Emergency Medicine; Visit Provider Emergency Medicine
DX: A08.4 Viral intestinal infection, unspecified (principal); F17.210 Nicotine dependence, cigarettes, uncomplicated
CPT/HCPCS: 80053; 84703; 85025; 96361; 96374; 99283; J7030; A4216; J2405

== ENCOUNTER 2024-04-28 01:22 | Inpatient (IN) | payer MEDICAID, SELFPAY ==
[2024-04-28] VITALS (16 sets, daily range): BP systolic 109–154; BP diastolic 61–86; PULSE 55–72; RESP 12–18; TEMP 36.3–37; O2SAT 97–99; BMI 27.1
[2024-04-28] MEDS: Oxytocin 15 Units/NS 250ml 15 UNITS/250 ML IV.SOLN 83 UNITS IV (01:30)
[2024-04-28] MEDS: Lactated Ringers 1,000 ML 50 ML IV (01:30)
--- NOTE | 2024-04-28 01:50 | PCM.HP.OB ---
HPI - General General Date of Admission: 04/28/24 HPI Narrative JONATHAN MURILLO, is a 34 F who presents by squad for contractions and leaking fluid. Arrived to unit at 10 cm and pushing. Maternal Data Information ALEXA Calculator Estimated Delivery Date Method Current WG Current Estimate 04/27/24 Manual 40w 1d Gestational age: 40.1 PFSH PFS Medical History (Updated 04/28/24 @ 01:55 by Peyton Belle CNM) ADHD (attention deficit hyperactivity disorder) Anxiety (spontaneous vaginal delivery) Trauma Elective Home Medications ?Medication ?Instructions ?Recorded ?Last Taken ?Type amoxicillin 500 mg capsule 500 mg PO BID #20 caps 06/25/22 Unknown Rx lisdexamfetamine 20 mg capsule 20 mg PO DAILY 06/25/22 Unknown History (Abdulkadir) hydrocortisone 2.5 % topical cream 1 applic topical BID #28 grams 11/09/22 Unknown Rx prednisone 20 mg tablet 20 mg PO .asdir #19 tabs 11/09/22 Unknown Rx ondansetron 4 mg disintegrating 8 mg (2 x 4 mg) PO Q8H PRN PRN 01/29/23 Unknown Rx tablet Nausea #20 tabs Allergy/AdvReac Type Severity Reaction Status Date / Time Sulfa (Sulfonamide Allergy Swelling Verified 01/29/23 21:36 Antibiotics) Surgical History [place] teeth extracted Social History household members: children Smoking Status: Current some day smoker tobacco type: cigarettes substance use type: does not use History Elective abortions Hx Para 1 Spontaneous abortions Hx # Term Pregnancies Ectopic pregnancies Hx # Pregnancies Multiple births # of living children ROS Eyes Eyes: Denies blurry vision, change in vision or spots in vision ENT HEENT: Denies dizziness or headache(s) Cardiovascular Cardiovascular: Denies abdominal pain, chest pain or dyspnea Respiratory/Chest Respiratory/Chest: Denies cough, dyspnea, shortness of breath at rest or shortness of breath with exertion Gastrointestinal Gastrointestinal: Denies abdominal pain, diarrhea or vomiting Genitourinary Genitourinary: Denies change in urinary stream, difficulty urinating or dysuria Musculoskeletal Musculoskeletal: Reports none Integumentary Integumentary: Denies rash Neurologic Neurologic: Denies dizziness, headache(s), memory loss or weakness Psychiatric Psychiatric: Reports none Physical Exam Const alert, oriented x3 and no apparent distress General Appearance: cooperative Orientation / Consciousness: awake Exam Limitations: no limitations HEENT normocephalic Head and Scalp: normal to inspection Eyes General Eye: normal appearance of both eyes Neck full ROM and no lymphadenopathy Lymph Lymphatic: no lymphadenopathy noted Chest inspection of chest normal Resp normal respiratory effort, normal air movement and clear to auscultation bilaterally Effort and Inspection: able to speak in complete sentences and symmetric chest movement Cardio regular rate and regular rhythm GI normal to inspection, nondistended, normoactive bowel sounds Manual OB Exam: presentation cephalic Back/Spine normal ROM Extremity full ROM and no calf tenderness Skin no rashes or lesions noted General Skin Exam: no breakdown Neuro oriented x3 and CN's II-XII intact bilaterally Psych mental status grossly normal and thought process normal Labs Labs Labs: Blood Type B NEGATIVE Antibody Screen NEGATIVE Hct 38.8 % (37-47) Hgb 12.7 g/dL (12.0-15.0) Assessment & Plan (1) 40 weeks gestation of : (2) Spontaneous onset of labor: (3) Spontaneous rupture of amniotic membranes: (4) AMA (advanced maternal age) multigravida 35+: (5) Tobacco smoking affecting : (6) Meconium in amniotic fluid: (7) ADHD (attention deficit hyperactivity disorder): (8) Anxiety: (9) Rh negative status during : (10) Sheltered homelessness: PLAN: Plan Admit to labor and delivery Anticipate
--- NOTE | 2024-04-28 01:57 | EX.PCM.OBVAG ---
Assessment & Plan (1) Meconium in amniotic fluid: (2) Anxiety: (3) ADHD (attention deficit hyperactivity disorder): (4) 40 weeks gestation of : (5) AMA (advanced maternal age) multigravida 35+: (6) Tobacco smoking affecting : (7) Rh negative status during : Maternal Data Information ALEXA Calculator Estimated Delivery Date Method Current WG Current Estimate 04/27/24 Manual 40w 1d Vaginal Delivery Maternal Presentation Maternal Presentation: Active Labor and Spontaneous Rupture of Membranes Maternal Presentation: Arrived by squad 10 cm dilated and pushing. Vaginal Delivery Information Procedure Performed: Spontaneous Vaginal Delivery Surgeon/Practitioner: Peyton Belle Pre-Procedure Diagnosis: Term gestation, Spontaneous onset of labor, SROM Post-Procedure Diagnosis: , precipitous delivery, Live female infant Type of anesthesia: None Estimated Blood Loss: 200 Time of Delivery: 01:32 Findings Description of procedure: Patient arrived by squad and was completely dilated and +1 station. She was bearing down and wanting to push. Meconium fluid noted. With minimal maternal effort, head delivered followed by anterior shoulder and remainder of body without any force, delay, or traction. Vigorous female was delivered atraumatically and placed on maternal abdomen. Short cord noted. Pitocin IM, and IV started for active management of the third stage of labor. 3 vessel cord clamped and cut after delay and infant placed immediately skin to skin with patient. Cord blood and gasses collected. Placenta delivered spontaneously and intact. After inspection, vagina and perineum are intact. Vaginal sweep performed. Fundus is firm 1 below U and bleeding is hemostatic. Sponge and sharps counts correct. Patient and bonding well at this time. Dr. Chavez notified of delivery. Routine post orders placed. 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
[2024-04-28 02:14] LABS: Absolute Neutrophil Count 10.2 X10^3/uL (2.0-7.7); Basophil# 0.08 X10^3/uL; Basophil% 0.6 % (0-1); Eosinophil# 0.08 X10^3/uL; Eosinophils% 0.6 % (0-5); Hematocrit 39.2 % (37-47); Hemoglobin 13.1 g/dL (12.0-15.0); Lymphocyte % 16.9 % (19-41); Mean Corp Hgb Conc 33.4 g/dL (32-36); Mean Corpuscular Hgb 30.8 pg (27.0-32.0); Mean Platelet Vol. 10.4 fl (6.2-12.0); Monocyte# 0.91 X10^3/uL; Monocyte% 6.7 % (0-10); NRBC Flagged by Analyzer 0 % (0-5); Neutrophil # 10.17 X10^3/uL (2.7-7.7); Neutrophil % 74.5 % (47-70); Platelet Count 301 K/mm3 (150-450); RBC Distribution Width SD 43.2 fl (35.1-43.9); Red Blood Count 4.26 M/mm3 (4.2-5.4); White Blood Count 13.6 K/mm3 (4.4-11.0)
[2024-04-28] MEDS: Methylergonovine 0.2 MG/ML Ampul IM (02:34)
[2024-04-28 02:57] LABS: Syphilis Antibodies Non-reactive
--- NOTE | 2024-04-28 06:01 | PLAC_PTH ---
PATIENT: JONATHAN MURILLO LOC: WP U#:[id number] AGE/SX: 34/F ROOM: WP009 RE04/28/[address]: Peyton Belle CNM : 1990 BED: 1 DIS: 04/29/2024 SPEC #: [id number] RECD: 04/28/24 08:39 STATUS: ERIC REOctavia #: [id number] KRISHNA: 04/28/24 06:[address]: Peyton Belle DEPT: SURGICAL PATHOLOGY RECD BY: Christian Andersen ENTERED: 04/28/24 09:17 SP TYPE: PLACENTA OTHR DR: P[facility] Tissues: Placenta, NOS Procedures: Surgery Specimen Level V HEADER OPERATION: Vaginal delivery PRE-OP DIAGNOSIS: Poly TISSUE SUBMITTED: Placenta MICROSCOPIC DIAGNOSIS Placenta: Placental disc - third trimester placenta (485 gm). - Focal areas of fibrin plaque, surface (largest measuring 3.5cm in greatest dimension). Membranes - no pathologic diagnosis. Umbilical cord - three blood vessels and no pathologic diagnosis. SJ: 05/02/2024 MICROSCOPIC DESCRIPTION Slides are reviewed. GROSS DESCRIPTION SPECIMEN: PLACENTA / CLINICAL INFORMATION: A. Weight: 3.355 kg B. Gestational Age: 40 weeks C. Sex: Female PLACENTAL WEIGHT (POST FIXATION):485 gm PLACENTAL DIMENSIONS: 20 x 17 x 3 cm PLACENTAL SHAPE: Usual ovoid PLACENTAL WEIGHT FOR GESTATIONAL AGE: Within 10-99th percentile MEMBRANES - Present A. Insertion: Marginal B. Site of rupture from edge: 5 cm from edge of placental disc C. Color of membrane: Newman-mucoidy D. Abnormalities: None UMBILICAL CORD - Present A. Color: Newman-guevara B. Insertion: Paracentral C. Length: 24 cm D. Diameter: 1.2 cm E. Number of vessels: Three F. Abnormalities: None PLACENTAL DISC - Present A. Color of surface: Newman-guevara B. surface abnormalities: surface shows two newman-white plaque largest measuring 3.5cm in greatest dimension. C. Maternal cotyledons: Intact with minimal tears D. Attached retro placental clot: No clot E. Cut surface: Dark red and spongy F. Lesions: Sections reveal a small cyst measuring 0.5cm in greatest dimension. G. Separate clot: Absent SECTIONS SUBMITTED: (6 cassettes) 1. Membrane roll 2. Cord, maternal end, newman-white plaque on surface 3. Cord, end, newman-white plaque on surface 4. Placental disc, and maternal surfaces, lesion 5. Placental disc, and maternal surfaces 6. Placental disc, and maternal surfaces SJ.mr 05/01/2024 TC:5 CPT: 76968
[2024-04-28 06:42] LABS: Amphetamine Urine VISTA NEGATIVE (<1000 ng/mL); Barbiturate Urine VISTA NEGATIVE (< 200 ng/mL); Benzodiazepine Urine VISTA NEGATIVE (< 200 ng/mL); Cocaine Urine VISTA NEGATIVE (< 300 ng/mL); Ecstacy Urine VISTA NEGATIVE (< 500 ng/mL); Methadone Urine VISTA NEGATIVE (< 300 ng/mL); PCP Urine VISTA NEGATIVE (< 25 ng/mL); THC Urine VISTA POSITIVE (< 50 ng/mL); Vista UDS pH Range 6
[2024-04-28 08:40] LABS: Pathology Specimen OB SEE PATHOLOGY REPORT
[2024-04-28] MEDS: Naproxen 500 MG Tablet PO ×2 (08:44→20:36)
[2024-04-28] MEDS: Rho(D) Immune Globulin 300 MCG (1500 Unit) Syringe IV (10:52)
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
[2024-04-29 02:42] VITALS: BP 131/78; PULSE 75; RESP 16; TEMP 36.3; O2SAT 98
[2024-04-29 08:44] VITALS: BP 138/84; PULSE 74; RESP 18; TEMP 36.2; O2SAT 100
--- NOTE | 2024-04-29 09:41 | PCM.PN.OB ---
Subjective Subjective Denies complaints Objective Data Objective Data Vital Signs: Vital Signs Temp Pulse Resp BP Pulse Ox O2 Del Method 97.2 F L 74 18 138/84 H 100 Room Air 04/29/24 08:44 04/29/24 08:44 04/29/24 08:44 04/29/24 08:44 04/29/24 08:44 04/29/24 02:42 Oxygen Delivery Method Room Air Weight: 158 lb Body Mass Index (BMI) 27.1 Intake & Output: Intake and Output for Last 24 Hours 04/27/24 04/28/24 04/29/24 23:59 23:59 23:59 Intake Total 275 / 275 Output Total 550 / 550 Balance -275 / -275 Lab / Micro Data 04/28/24 01:30 Physical Exam Const alert, oriented x3 and no apparent distress HEENT normocephalic GI soft to palpation, non-tender and non-distended GI Narrative: fundus firm, mid & below umbilicus Extremity normal to inspection and no calf tenderness Assessment & Plan (1) Precipitous delivery: COMMENT: PPD#1 PLAN: Plan D/c home later today per patient request
--- NOTE | 2024-04-29 09:42 | PCM.DC.SUM ---
Providers Date of Admission: 04/28/24 Primary Care Physician: [facility] Reason For Visit: VAG Diagnosis Discharge Diagnosis (1) Precipitous delivery: Status: Acute Code(s): O62.3 - Precipitate labor Plan D/c home later today per patient request Medications at Discharge Home Medications calcium 250 mg tablet 1 mg PO DAILY nutrition 04/28/24 dxxykxie-gjj-Mh-FA 1 mg tablet tab PO DAILY nutrition 04/28/24 acetaminophen 500 mg tablet 1,000 mg (2 x 500 mg) PO Q6H PRN PRN Pain 1-10 Or Fever #60 tabs 04/29/24 naproxen 500 mg tablet 500 mg PO Q8H PRN PRN Pain Score 1-10 #30 tabs 04/29/24 Hospital Course Operations None Procedures None Summary of Care Provided Minutes Spent on Discharge: 15 Physical Exam Const alert, oriented x3 and no apparent distress HEENT normocephalic GI soft to palpation, non-tender and non-distended GI Narrative: fundus firm, mid & below umbilicus Extremity normal to inspection and no calf tenderness Weight / BMI Weight Weight: 158 lb Body Mass Index (BMI) 27.1 ABG / Lab / Microbiology Data 04/28/24 01:30 D/C Instructions Discharge Diet: No restrictions Discharge Activity: May Shower May resume sexual activity in: 6 weeks Weight Bearing Status: Weight bearing as tolerated Call your doctor if you observe: Fever of 101 or Higher, Coldness, Increased Pain, Change in Color, Inability to urinate, Inability to have a bowel movement, Using more than 1 pad per hour, Shortness of breath, Dizziness, Fainting spells, Chest pain, Increased palpitations (irregular heartbeat), Calf discomfort and Uncontrolled pain DC O2, CPAP, BIPAP Needs Home O2 Discharge instructions: No Please Follow Up With: Yasmin Bolanos MD When: Follow up in 2 and 6 weeks for visits. Meaningful Use Info Meaningful Use Meaningful Use Diagnoses (Choose all that apply): None applicable Ischemic Stroke Statin Dosing Therapy Reference: STATIN DOSE THERAPY REFERENCE: * Patients > 75 years receive moderate or high dose statin therapy. * Patients 75 years or YOUNGER should receive HIGH intensity statin dose unless contraindicated. You will be required to document reason for non-treatment if statin daily dose does not meet guidelines. HIGH DOSE STATIN THERAPY DAILY Atorvastatin > than or = to 40 mg Rosuvastatin > than or = to 20 mg Amlodipine + Atorvastatin > than or = to 2.5/40 mg Ezetimibe + Simvastatin 10/80 mg Simvastatin 80mg Discharge Plan Admission Admit Date/Time: 04/28/24 01:22 Primary Reason for Your Visit: Vaginal delivery Attending Provider: Peyton Belle Primary Care Provider: [facility] Patt Lobato Discharge Orders/Prescriptions Prescriptions: New acetaminophen 500 mg Tablet 1,000 mg PO Q6H PRN PRN (Reason: Pain 1-10 Or Fever) Qty: 60 0RF naproxen 500 mg Tablet 500 mg PO Q8H PRN PRN (Reason: Pain Score 1-10) Qty: 30 0RF Continued orkfufor-ews-Re-FA 1 mg tablet PO DAILY calcium 250 mg tablet 1 mg PO DAILY [facility] - Disposition Disposition (needs filled in before D/C Order can be placed): Home, Self Care
[2024-04-29 13:48] VITALS: BP 127/82; PULSE 71; RESP 16; TEMP 36.4; O2SAT 99
== END 2024-04-29 16:30 | disposition home or self-care (01) | DRG 560 ==
PROVIDERS: Admitting Provider Advanced Practice Midwife; Visit Provider Advanced Practice Midwife
DX: O62.3 Precipitate labor (principal); Z37.0 Single live birth; Z59.01 Sheltered homelessness; F17.210 Nicotine dependence, cigarettes, uncomplicated; F41.9 Anxiety disorder, unspecified; O42.92 Full-term premature rupture of membranes, unspecified as to length of time between rupture and onset of labor; F90.9 Attention-deficit hyperactivity disorder, unspecified type; O99.344 Other mental disorders complicating childbirth; O26.893 Other specified pregnancy related conditions, third trimester; Z67.21 Type B blood, Rh negative; O99.334 Smoking (tobacco) complicating childbirth; O77.0 Labor and delivery complicated by meconium in amniotic fluid; Z3A.40 40 weeks gestation of pregnancy
CPT/HCPCS: 59050; 80307; 85025; 85461; 86780; 86850; 86900; 86901; 88307; 90384; 99221; G0378; J2790; J2791